=== PATIENT | male | born 1965 | race African-American/Black ===

== ENCOUNTER 2016-10-25 01:38 | Inpatient (IN) | payer SELFPAY ==
[~2016-10-25] VITALS: Ht 172.7 cm; Wt 77.1 kg
--- NOTE | 2016-10-25 01:40 | ERA ---
ER Documentation Chief Complaint Date/Time DATE: 10/25/16 TIME: 01:40 Chief Complaint Seizure HPI The patient is a 50-year-old male, presenting to the ER because of she is alert that began about 30 minutes prior to arrival. He was having generalized seizure according to the and the supervisor ski production. He was treated with Versed 5 mg IV with moderate response. He was postictal upon arrival to the emergency department, Accu-Chek was 136. He had history of metastatic carcinoma, receiving chemo therapy and radiation therapy to the left hip. He has not been taking his medication. He is unable to provide any history, the history is obtained from the family and the supervisor ski production. He does not smoke nor drink Past medical history: Prostatic brain cancer Past surgical history: None ROS All systems reviewed and are negative except as per history of present illness. Medications Home Meds Reported Medications Levetiracetam* (Keppra*) 500 Mg Tablet, 500 MG PO BID, TAB 10/25/16 Dexamethasone* (Dexamethasone*) 4 Mg Tablet, 4 MG PO DAILY, TAB 10/25/16 Allergies Allergies: Coded Allergies: No Known Drug Allergies (Verified Allergy, Unknown, 10/25/16) Physical Exam Vitals Vital Signs Date Time Temp Pulse Resp B/P Pulse Ox O2 Delivery O2 Flow Rate FiO2 10/25/16 04:21 99.3 100 16 145/89 100 10/25/16 03:06 100 3.0 Physical Exam Const: No acute distress. Post ictal Head: Atraumatic. Eyes: Normal Conjunctiva. ENT: Normal External Ears, Nose and Mouth. Neck: Full range of motion. No meningismus. Resp: Clear to auscultation bilaterally. Cardio: Regular rate and rhythm, no murmurs. Abd: Soft, non distended, normal bowel sounds, non tender. Skin: No petechiae or rashes. Back: No midline or flank tenderness. Ext: No cyanosis, or edema. Neur: Unable to perform due to his condition Psych: Unable to perform due to his condition Result Diagram: 10/25/16 0345 10/25/16 0345 Results 24 hrs Laboratory Tests Test 10/25/16 03:45 10/25/16 04:00 Alanine Aminotransferase (ALT/SGPT) 84IU/L Albumin 4.4g/dl Albumin/Globulin Ratio 1.51 Alkaline Phosphatase 204IU/L Anion Gap 20 Aspartate Amino Transf (AST/SGOT) 34IU/L Basophils # 0.010^3/ul Basophils % 0.2% Blood Morphology Comment Blood Urea Nitrogen 14mg/dl Calcium Level 9.4mg/dl Carbon Dioxide Level 30mmol/L Chloride Level 98mmol/L Creatinine 0.68mg/dl Direct Bilirubin 0.00mg/dl Eosinophils # 0.010^3/ul Eosinophils % 0.1% Globulin 2.90g/dl Glucose Level 125mg/dl Hematocrit 48.2% Hemoglobin 15.6g/dl Indirect Bilirubin 0.2mg/dl Lymphocytes # 0.510^3/ul Lymphocytes % 3.7% Mean Corpuscular Hemoglobin 26.9pg Mean Corpuscular Hemoglobin Concent 32.3g/dl Mean Corpuscular Volume 83.3fl Mean Platelet Volume 9.1fl Monocytes # 0.710^3/ul Monocytes % 5.2% Neutrophils # 11.410^3/ul Neutrophils % 90.8% Nucleated Red Blood Cells # 0.010^3/ul Nucleated Red Blood Cells % 0.0/100WBC Platelet Count 91470^3/UL Potassium Level 4.5mmol/L Red Blood Count 5.7910^6/ul Red Cell Distribution Width 15.8% Sodium Level 143mmol/L Total Bilirubin 0.2mg/dl Total Protein 7.3g/dl White Blood Count 12.610^3/ul Lactic Acid Level 3.6mmol/L Current Medications Medications (Trade) Dose Ordered Sig/Ace Route PRN Reason Start Time Stop Time Status Last Admin Dose Admin Lorazepam 1 mg 1 mg ONCE STAT IV 10/25/16 01:41 10/25/16 01:44 DC 10/25/16 01:48 Levetiracetam/ Sodium Chloride (Keppra Iv/NS) 110 ml @ 400 mls/hr ONCE STAT IVPB 10/25/16 01:41 10/25/16 01:57 DC 10/25/16 02:21 Lorazepam 1 mg 1 mg ONCE ONCE IV 10/25/16 02:30 10/25/16 02:31 DC 10/25/16 02:09 Vancomycin HCl 250 ml @ 125 mls/hr ONCE IVPB 10/25/16 02:30 10/25/16 04:29 Cancel Piperacillin Sod/ Tazobactam Sod 100 ml @ 200 mls/hr ONCE ONCE IVPB 10/25/16 02:30 10/25/16 02:59 DC 10/25/16 04:17 Sodium Chloride (NS) 1,000 ml @ 50 mls/hr Q20H IV 10/25/16 04:10 10/25/16 12:58 Procedures/MDM EKG: Read by emergency physician Rate/Rhythm: Sinus tachycardia 115 beats/min QRS, ST, T-waves: No ST elevation, no T inversion, LVH, left atrial enlargement Impression: Abnormal EKG [place] [id number] Radiology Main Line: [phone] DIAGNOSTIC IMAGING REPORT Patient: NAZ SHAH : 1965 Age: 50 Sex: M MR #: [id number] DOS: 10/25/16 0141 Ordering MD: ARMAAN MANCINI MD Location: E/R Room/Bed: PROCEDURE: CHEST - 1 VIEW CLINICAL INDICATION: 50-year-old male with seizure. TECHNIQUE: A single frontal AP upright view of the chest was performed portably. The images were reviewed on a PACS workstation. COMPARISON: None. FINDINGS: The cardiomediastinal silhouette within normal limits. There is a shallow inspiration. There is mild right basilar subsegmental atelectasis. There is diffuse patchy infiltrate within the left mid/lower lung zone. There is no evidence for congestive heart failure. There is no evidence for pneumothorax. The osseous structures are intact. IMPRESSION: 1. Shallow inspiration. 2. Mild bibasilar subsegmental atelectasis. 3. Diffuse patchy left mid/lower lung zone infiltrates. .Saman Martinez MD, Date Time Electronically viewed and signed by .Saman Martinez MD, on 10/25/2016 02:00 .M/ CC: ARMAAN MANCINI MD [place] [id number] Radiology Main Line: [phone] DIAGNOSTIC IMAGING REPORT Patient: NAZ SHAH : 1965 Age: 50 Sex: M [id number] DOS: 10/25/16 0141 Ordering MD: ARMAAN MANCINI MD Location: E/R Room/Bed: PROCEDURE: CT BRAIN WITHOUT CONTRAST CLINICAL INDICATION: 50-year-old male with seizure. TECHNIQUE: The study was performed utilizing a [employer] VCT 64-slice CT scanner. Direct axial sections were obtained from the foramen magnum to the vertex without the use of intravenous contrast material. Sagittal and coronal reformations were obtained. Automated exposure control and iterative reconstruction techniques were utilized for this examination. The images were viewed on a PACS workstation. CTD/vol = 50.3 mGy; Total Exam DLP = 920.0 mGy- cm. COMPARISON: None. FINDINGS: The ventricles have a normal size, shape and position. There is no evidence for mass effect or midline shift. There are no intracranial areas of abnormal attenuation. There is no evidence for acute intra or extra-axial blood. The bony calvarium is intact. The temporalis muscles are prominent bilaterally. The visualized paranasal sinuses and mastoid air cells are without abnormal soft tissue. IMPRESSION: Unremarkable noncontrast CT scan of the brain. .Saman Martinez MD, MD Date Time Electronically viewed and signed by .Saman Martinez MD, on 10/25/2016 03:50 .M/ CC: ARMAAN MANCINI MD MEDICAL MAKING DECISION: The patient is a 50-year-old male with history of metastatic brain CA, presenting with recurrent seizure, acute severe sepsis, acute pneumonia. He was treated with Ativan 2 mg IV and Keppra 1000 mg IV, normal saline 30 mL/kg, vancomycin IV, Zosyn IV due to concern for probable aspiration pneumonia. The differential diagnoses considered include but are not limited to medication non-compliance, alcohol intoxication or withdrawal, drug intoxication or withdrawal, endocrine disorder, trauma, CVA, tumor, metabolic encephalopathy, septic encephalopathy. Admit MDM: Patient's infectious symptoms have not stabilized and the patient is at risk of rapid decompensation. The patient will be admitted for careful hydration, antibiotic therapy, and infectious source control. Severe Sepsis criteria: Infectious source: Pneumonia End organ damage indicated by: Lactate > 2.0 mmol/L Hypotension (SBP < 90 or >40 mmHG drop or MAP < 65) Sepsis Management: Time of recognition of severe sepsis/septic shock: 4:05 am Within 3 hours of recognition: Blood cultures x 2 before broad-spectrum antibiotics: Yes 30 ml/kg NS bolus completed Initial lactate 3.6 Repeat lactate pending Critical Care: Critical care time 35 minutes Emergent fluid management while maintaining close respiratory support. Provision of immediate and broad-spectrum antibiotic therapy. Simultaneous assessment for possible sources in order to direct targeted therapy. Consideration for invasive and chemical support to prevent cardiopulmonary collapse. Septic Shock Assessment: Any lactic acid > 4.0 no Persistent hypotension (SBP < 90 or 40 mmHg drop, MAP < 65) despite 30 mL/kg IV fluid bolusno Departure Diagnosis: Primary Impression: Recurrent seizures Additional Impressions: Severe sepsis Pneumonia Condition: Stable Comments I discussed the findings with the patient. I discussed the patient with the on- call hospitalist Dr. Marti who was made aware of the lab, the treatment, the patient condition. The patient is admitted to telemetry at 4:10 AM ARMAAN MANCINI MD Oct 25, 2016 01:40
[2016-10-25] MEDS ORDERED: LEVETIRACETAM IV 1,000 MG in SOD CHLORIDE 0.9% 100 ML IVPB STA (01:41)
[2016-10-25] MEDS ORDERED: LORAZEPAM 2 MG INJ IV STA (01:41)
--- NOTE | 2016-10-25 02:00 | RADRPT ---
PROCEDURE: CHEST - 1 VIEW CLINICAL INDICATION: 50-year-old male with seizure. TECHNIQUE: A single frontal AP upright view of the chest was performed portably. The images were reviewed on a PACS workstation. COMPARISON: None. FINDINGS: The cardiomediastinal silhouette within normal limits. There is a shallow inspiration. There is mil d right basilar subsegmental atelectasis. There is diffuse patchy infiltrate within the left mid/low er lung zone. There is no evidence for congestive heart failure. There is no evidence for pneumotho rax. The osseous structures are intact. IMPRESSION: 1. Shallow inspiration. 2. Mild bibasilar subsegmental atelectasis. 3. Diffuse patchy left mid/lower lung zone infiltrates. .Saman Martinez MD, Date Time Electronically viewed and signed by .Saman Martinez MD, on 10/25/2016 02:00 .M/
[2016-10-25] MEDS ORDERED: VANCOMYCIN 1 GM (PMX) 250 ML IVPB SCH (02:30)
[2016-10-25] MEDS ORDERED: LORAZEPAM 2 MG INJ IV ONE (02:30)
[2016-10-25] MEDS ORDERED: PIPER-TAZO 3.375 GM IV (PMX) 100 ML IVPB ONE (02:30)
--- NOTE | 2016-10-25 03:50 | RADRPT ---
PROCEDURE: CT BRAIN WITHOUT CONTRAST CLINICAL INDICATION: 50-year-old male with seizure. TECHNIQUE: The study was performed utilizing a [employer] VCT 64-slice CT scanner. Direct axia l sections were obtained from the foramen magnum to the vertex without the use of intravenous contra st material. Sagittal and coronal reformations were obtained. Automated exposure control and iterat samuel reconstruction techniques were utilized for this examination. The images were viewed on a PACS workstation. CTD/vol = 50.3 mGy; Total Exam DLP = 920.0 mGy-cm. COMPARISON: None. FINDINGS: The ventricles have a normal size, shape and position. There is no evidence for mass effect or midl ine shift. There are no intracranial areas of abnormal attenuation. There is no evidence for acute intra or extra-axial blood. The bony calvarium is intact. The temporalis muscles are prominent bila terally. The visualized paranasal sinuses and mastoid air cells are without abnormal soft tissue. IMPRESSION: Unremarkable noncontrast CT scan of the brain. .Saman Martinez MD, MD Date Time Electronically viewed and signed by .Saman Martinez MD, MD on 10/25/2016 03:50 .M/
[2016-10-25 04:26] LABS: ALBUMIN 4.4 g/dl (3.3-4.9); POTASSIUM 4.5 mmol/L (3.5-5.1)
[2016-10-25 04:29] LABS: ALBUMIN/GLOBULIN RATIO 1.51; BILIRUBIN,INDIRECT 0.2 mg/dl (0-1.1); BILIRUBIN,TOTAL 0.2 mg/dl (0.2-1.3); CREATININE 0.68 mg/dl (0.61-1.24); TOTAL PROTEIN 7.3 g/dl (6.1-8.1)
[2016-10-25 04:30] LABS: CALCIUM 9.4 mg/dl (8.4-10.2)
[2016-10-25] MEDS ORDERED: VANCOMYCIN IV PER PHARMACY XX SCH (04:30)
[2016-10-25] MEDS ORDERED: NITROGLYCERIN (SL) 0.4 MG TAB SL PRN (04:30)
[2016-10-25] MEDS ORDERED: ONDANSETRON 4 MG INJ IV PRN (04:30)
[2016-10-25] MEDS ORDERED: morphine 2 MG INJ IV PRN (04:30)
[2016-10-25] MEDS ORDERED: ACETAMINOPHEN 325 MG TAB PO PRN (04:30)
[2016-10-25] MEDS ORDERED: NACL 0.9% 3 ML SYG IV SCH (04:30)
[2016-10-25 04:31] LABS: BASOPHILS % 0.2 % (0.0-2.0); EOSINOPHILS % 0.1 % (0.0-7.0); HEMATOCRIT 48.2 % (42.0-52.0); HEMOGLOBIN 15.6 g/dl (14.0-18.0); LYMPHOCYTES # 0.5 10^3/ul (0.8-2.9); LYMPHOCYTES % 3.7 % (15.0-51.0); MEAN CORPUSCULAR HEMOGLOBIN 26.9 pg (29.0-33.0); MEAN CORPUSCULAR HGB CONC 32.3 g/dl (32.0-37.0); MEAN CORPUSCULAR VOLUME 83.3 fl (82.0-101.0); MEAN PLATELET VOLUME 9.1 fl (7.4-10.4); MONOCYTE # 0.7 10^3/ul (0.3-0.9); MONOCYTES % 5.2 % (0.0-11.0); NEUTROPHIL # 11.4 10^3/ul (1.6-7.5); NEUTROPHILS % 90.8 % (39.0-77.0); PLATELET COUNT 152 10^3/UL (140-440); RED BLOOD COUNT 5.79 10^6/ul (4.70-6.10); RED CELL DISTRIBUTION WIDTH 15.8 % (11.5-14.5); UNCORRECTED WBC 12.6 10^3/ul (4.8-10.8); WHITE BLOOD COUNT 12.6 10^3/ul (4.8-10.8)
[2016-10-25 04:35] LABS: CONDITION 1; LH ANALYZER COMMENTS 1
--- NOTE | 2016-10-25 04:41 | HP ---
Date/Time of Note Date/Time of Note DATE: 10/25/16 TIME: 04:32 Assessment/Plan VTE Prophylaxis VTE Prophylaxis Intervention: SCD's Assessment/Plan Assessment/Plan 50 yo unfortunate male with a past medical history of metastatic brain CA, seizure d/o, who presents with overriding seizures. 1. Seizures - 2/2 no medications - will admit the patient to telemetry, consult neurology, EEG, IV keppra, seizure precautions, pads, monitor acute changes, neurovascular checks 2. Metastatic brain CA - consult hematology/oncology 3. LLL PNA - zosyn/vanc - monitor acute changes 4. GI ppx - pepcid IV 5. DVT ppx - scds answered all questions. as per clinical course. this history and physical took greater then 45 minutes to complete HPI/ROS Admit Date/Time Admit Date/Time 10/25/2016, 4:32 am Hx of Present Illness 50 yo unfortunate male with a past medical history of metastatic brain CA, seizure d/o, who presents with overriding seizures. He was found by his to be unresponsive for quite some time and came to the ER here at [facility] for further evaluation and treatment. They had recently traveled from [place] last night. Since then, the patient had has fevers/chills, and decreased appetite. He has not been taking his medications as prescribed. His seizure resulted in urinary incontinence. No other history can be obtained. all this information was gathered from the patient's . ED course: IV antibiotics, keppra, ativan ROS Subjective hx not possible: pt non-verbal PMH/Family/Social Past Medical History seizure d/o, metastatic cancer - brain? Past Surgical History Past Surgical Hx: no surgical history Family History Significant Family History: no pertinent family hx Social History Alcohol Use: none Smoking Status: Never smoker Drug Use: none Exam/Review of Systems Vital Signs Vitals Vital Signs Date Time Temp Pulse Resp B/P Pulse Ox O2 Delivery O2 Flow Rate FiO2 10/25/16 03:06 100 3.0 Exam Exam Gen Bruce: obtunded HEENT: NC/AT, PERRLA, MM dry NECK: supple, no thyromegaly THORAX: symmetrical, no obvious deformities CV: S1S2, RRR, no M/G/R Lungs: left lower rhonchi in comparison to the right lung, no wheezing Abd: soft, NT/ND, +BS, no rebound, no guarding, neg HSM EXT: no edema, no ecchymosis, no clubbing, FROM Neuro: obtunded Psych: confused Skin: cool and clammy Medications Medications Current Medications Sodium Chloride (NS) 1,000 ml @ 50 mls/hr Q20H IV ; Start 10/25/16 at 04:10; Status UNV Lorazepam (Ativan) 0.5 mg Q6H PRN IV ANXIETY; Start 10/25/16 at 04:30; Status UNV Ondansetron HCl (Zofran Inj) 4 mg Q6H PRN IV NAUSEA AND/OR VOMITING; Start at 04:30; Status UNV Nitroglycerin (Nitroglycerin (Sl Tab) 0.4 Mg) 1 tab Q5M PRN SL CHEST PAIN; Start 10/25/16 at 04:30; Status UNV Acetaminophen (Tylenol Tab) 650 mg Q6H PRN PO PAIN LEVEL 1-3 OR FEVER; Start at 04:30; Status UNV Morphine Sulfate (morphine) 2 mg Q4H PRN IV PAIN LEVEL 7-10; Start 10/25/16 at 04:30; Status UNV Famotidine 20 mg 20 mg Q12 IV ; Start 10/25/16 at 09:00; Status UNV Piperacillin Sod/ Tazobactam Sod 100 ml @ 200 mls/hr Q6 IVPB ; Start 10/25/16 at 06:00; Status UNV Levetiracetam/ Dextrose (Keppra Iv/D5W) 110 ml @ 440 mls/hr Q12 IVPB ; Start at 09:00; Status UNV Procedures Procedures CT brain IMPRESSION: Unremarkable noncontrast CT scan of the brain. CXR IMPRESSION: 1. Shallow inspiration. 2. Mild bibasilar subsegmental atelectasis. 3. Diffuse patchy left mid/lower lung zone infiltrates. PETER LANDERS MD Oct 25, 2016 04:41
[2016-10-25] MEDS ORDERED: VANCOMYCIN 1.25 GM in SOD CHLORIDE 0.9% 250 ML IVPB ONE (05:00)
[2016-10-25] MEDS ORDERED: SOD CHLORIDE 0.9% 2,390 ML IV ONE (05:30)
[2016-10-25 06:08] LABS: PROTIME 13.2 Sec (12.2-14.2)
[2016-10-25 06:10] LABS: PARTIAL THROMBOPLASTIN TIME 24.4 Sec (25.0-35.0)
[2016-10-25] MEDS: LORAZEPAM 2 MG INJ IV PRN ×2 (06:21→19:02)
[2016-10-25] MEDS ORDERED: LIDOCAINE 1% (MDV) 20 ML INJ SC ONE (06:30)
--- NOTE | 2016-10-25 06:57 | QN ---
Documentation Comment EKG read by me: Rate/Rhythm: Regular rate and rhythm at a rate of 75 Intervals: Normal Impression: No evidence of ischemia or arrhythmia The patient had pulled out 2 IVs and so not behavioral restraints needed to be placed. The patient also requires IV access was a difficult stick and therefore PICC line was ordered for access. His lactic acid has increased from 3.6 to greater than 4 but that was without receiving any fluids. His lactic acid elevation may be from seizure. At this point I doubt true septic shock. SULEMA PHILLIPS MD Oct 25, 2016 06:57
[2016-10-25 07:24] LABS: URINE BLOOD (Dip) POC Trace-intact (NEGATIVE)
[2016-10-25] MEDS ORDERED: MAGNESIUM SULFATE 2 GM/50 ML 50 ML IVPB ONE (07:30)
[2016-10-25] MEDS ORDERED: DEXA4TAB PO (07:34)
[2016-10-25] MEDS ORDERED: LEVE-5 PO (07:35)
[2016-10-25] MEDS ORDERED: LEVETIRACETAM IV 1,000 MG in DEXTROSE 5% 100 ML IVPB SCH (09:00)
[2016-10-25] MEDS: FAMOTIDINE 20 MG INJ IV SCH ×2 (10:47→21:57)
[2016-10-25 12:30] VITALS: TEMP 100
[2016-10-25] MEDS: SOD CHLORIDE 0.9% 1,000 ML IV SCH ×2 (12:58→23:22)
[2016-10-25] MEDS: PIPER-TAZO 3.375 GM IV (PMX) 100 ML IVPB SCH ×2 (12:58→17:24)
[2016-10-25] MEDS ORDERED: VANCOMYCIN 1 GM in NS 250 ML IVPB SCH ×2 (13:00→17:00)
--- NOTE | 2016-10-25 13:58 | RADRPT ---
PROCEDURE: XR Chest. CLINICAL INDICATION: PICC line placement TECHNIQUE: Chest AP portable. COMPARISON: 10/25/2016 at all 0154 hours FINDINGS: Left arm PICC line with tip in the upper superior vena cava. The mediastinal structures are unremarkable. The heart is normal in size and configuration. The pu lmonary vascularity is normal. There are low lung volumes. There is no change in the LLL retrocard iac patchy consolidation (query pneumonia). No change in right basilar subsegmental atelectasis. T he pleural spaces are unremarkable. The axial skeleton is unremarkable. IMPRESSION: Left arm PICC line with tip in upper superior vena cava Low lung volumes. No change in the LLL retrocardiac patchy consolidation (query pneumonia) No change in right basilar subsegmental atelectasis RPTAT: HGDB .Sukhjinder Cabezas MD, MD Date Time Electronically viewed and signed by .Sukhjinder Cabezas MD, on 10/25/2016 13:57 .B/
--- NOTE | 2016-10-25 14:08 | RADRPT ---
PROCEDURE: US guidance for PICC line CLINICAL INDICATION: PICC line placement TECHNIQUE: Multiple real-time images were acquired of the patient's arm utilizing a high resolutio n transducer. This was performed by the PICC line nurse for venous access. COMPARISON: None FINDINGS: Ultrasound guidance for PICC line placement. IMPRESSION: Ultrasound guidance for PICC line placement. RPTAT: AA .Marco Harris MD, MD Date Time Electronically viewed and signed by .Marco Harris MD, on 10/25/2016 14:07 .S/
[2016-10-25 16:55] VITALS: Ht 172.7 cm; Wt 77.1 kg
[2016-10-25 16:59] VITALS: BP 123/72; PULSE 95; RESP 20
--- NOTE | 2016-10-25 18:48 | CONS ---
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 Metastatic brain CA - OBTAIN AND REVIEW MEDICAL RECORD restart [facility] WILL GET MORE INFO FROM [place] AND RE DX, PRIMARY AND TREATMENT GIVEN IN THE PAST Seizures - 10/04 no medications - will admit the patient to telemetry, consult neurology, EEG, IV keppra, [facility], seizure precautions, pads, monitor acute changes, neurovascular checks LLL PNA - zosyn/vanc - monitor acute changes GI ppx - pepcid IV DVT ppx - scds INCOMPLETE DATA NONCOMPLUANCE WITH [facility] OUTPT Problems: Consultation Date/Type/Reason Admit Date/Time 10/25/2016, 4:32 am Date of Consultation: Oct 25, 2016 Type of Consultation: hemeonc Reason for Consultation brain mets Referring Provider: CHRISTOPHER CALIXTO Hx of Present Illness Hx of Present Illness 50 yo unfortunate male with a past medical history of lung cancer, dx as st 4 dis in 2014 , 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 He was found by his to be unresponsive for quite some time and came to the ER here at [facility] for further evaluation and treatment. They had recently traveled from [place] last night. Since then, the patient had has fevers/chills, and decreased appetite. He has not been taking his medications as prescribed. His seizure resulted in urinary incontinence. No other history can be obtained. all this information was gathered from the patient's . ROS Subjective hx not possible: pt non-verbal PMH/Family/Social Past Medical History seizure d/o, metastatic cancer - brain? Past Surgical History Past Surgical Hx: no surgical history Family History Significant Family History: no pertinent family hx Social History Alcohol Use: none Smoking Status: Never smoker Drug Use: none Past Surgical History Past Surgical Hx: no surgical history Social History Alcohol Use: none Smoking Status: Former smoker Drug Use: none Other Social History Medications Medications Current Medications Sodium Chloride (NS) 1,000 ml @ 50 mls/hr Q20H IV ; Start 10/25/16 at 04:10; Status UNV Lorazepam (Ativan) 0.5 mg Q6H PRN IV ANXIETY; Start 10/25/16 at 04:30; Status UNV Ondansetron HCl (Zofran Inj) 4 mg Q6H PRN IV NAUSEA AND/OR VOMITING; Start at 04:30; Status UNV Nitroglycerin (Nitroglycerin (Sl Tab) 0.4 Mg) 1 tab Q5M PRN SL CHEST PAIN; Start 10/25/16 at 04:30; Status UNV Acetaminophen (Tylenol Tab) 650 mg Q6H PRN PO PAIN LEVEL 1-3 OR FEVER; Start at 04:30; Status UNV Morphine Sulfate (morphine) 2 mg Q4H PRN IV PAIN LEVEL 7-10; Start 10/25/16 at 04:30; Status UNV Famotidine 20 mg 20 mg Q12 IV ; Start 10/25/16 at 09:00; Status UNV Piperacillin Sod/ Tazobactam Sod 100 ml @ 200 mls/hr Q6 IVPB ; Start 10/25/16 at 06:00; Status UNV Levetiracetam/ Dextrose (Keppra Iv/D5W) 110 ml @ 440 mls/hr Q12 IVPB ; Start at 09:00; Status UNV Exam/Review of Systems Vital Signs Vitals Vital Signs Date Time Temp Pulse Resp B/P Pulse Ox O2 Delivery O2 Flow Rate FiO2 10/25/16 16:59 98.3 95 20 123/72 98 Room Air 10/25/16 04:30 15.0 Exam Gen Bruce: obtunded HEENT: NC/AT, PERRLA, MM dry NECK: supple, no thyromegaly THORAX: symmetrical, no obvious deformities CV: S1S2, RRR, no M/G/R Lungs: left lower rhonchi in comparison to the right lung, no wheezing Abd: soft, NT/ND, +BS, no rebound, no guarding, neg HSM EXT: no edema, no ecchymosis, no clubbing, FROM Neuro: obtunded Psych: confused Skin: cool and clammy Results Result Diagram: 10/25/1634410/25/16 0345 Results 24 hrs Laboratory Tests Test 10/25/16 03:45 10/25/16 04:00 10/25/16 05:37 10/25/16 05:43 Alanine Aminotransferase (ALT/SGPT) 84 H Albumin 4.4 Albumin/Globulin Ratio 1.51 Alkaline Phosphatase 204 H Anion Gap 20 H Aspartate Amino Transf (AST/SGOT) 34 Basophils # 0.0 Basophils % 0.2 Blood Morphology Comment Blood Urea Nitrogen 14 Calcium Level 9.4 Carbon Dioxide Level 30 Chloride Level 98 Creatinine 0.68 Direct Bilirubin 0.00 Eosinophils # 0.0 Eosinophils % 0.1 Globulin 2.90 Glucose Level 125 Hematocrit 48.2 Hemoglobin 15.6 Indirect Bilirubin 0.2 Lymphocytes # 0.5 L Lymphocytes % 3.7 L Mean Corpuscular Hemoglobin 26.9 L Mean Corpuscular Hemoglobin Concent 32.3 Mean Corpuscular Volume 83.3 Mean Platelet Volume 9.1 Monocytes # 0.7 Monocytes % 5.2 Neutrophils # 11.4 H Neutrophils % 90.8 H Nucleated Red Blood Cells # 0.0 Nucleated Red Blood Cells % 0.0 Platelet Count 152 Potassium Level 4.5 Red Blood Count 5.79 Red Cell Distribution Width 15.8 H Sodium Level 143 Total Bilirubin 0.2 Total Protein 7.3 White Blood Count 12.6 H Lactic Acid Level 3.6 H 4.5 *H Activated Partial Thromboplast Time 24.4 L INR International Normalized Ratio 1.00 Magnesium Level 1.8 Prothrombin Time 13.2 Prothrombin Time Ratio 1.0 Bedside Glucose 102 Test 10/25/16 07:25 Bedside Urine Blood Trace-intact H Bedside Urine Glucose (UA) Negative Bedside Urine Ketones (LAB) Negative Bedside Urine Leukocyte Esterase (L Negative Bedside Urine Nitrite (LAB) Negative Bedside Urine Protein (LAB) 1+ H Bedside Urine pH (LAB) 7.5 Medications Medications Current Medications Sodium Chloride (NS) 1,000 ml @ 50 mls/hr Q20H IV Last administered on 12:58; Admin Dose 50 MLS/HR; Start 10/25/16 at 04:10 Lorazepam (Ativan) 0.5 mg Q6H PRN IV ANXIETY Last administered on 10/25/16 06: 21; Admin Dose 0.5 MG; Start 10/25/16 at 04:30 Ondansetron HCl (Zofran Inj) 4 mg Q6H PRN IV NAUSEA AND/OR VOMITING; Start at 04:30 Nitroglycerin (Nitroglycerin (Sl Tab) 0.4 Mg) 1 tab Q5M PRN SL CHEST PAIN; Start 10/25/16 at 04:30 Acetaminophen (Tylenol Tab) 650 mg Q6H PRN PO PAIN LEVEL 1-3 OR FEVER; Start at 04:30 Morphine Sulfate (morphine) 2 mg Q4H PRN IV PAIN LEVEL 7-10; Start 10/25/16 at 04:30 Famotidine 20 mg 20 mg Q12 IV Last administered on 10/25/16 10:47; Admin Dose 20 MG; Start 10/25/16 at 09:00 Piperacillin Sod/ Tazobactam Sod 100 ml @ 200 mls/hr Q6 IVPB Last administered on 10/25/16 17:24; Admin Dose 200 MLS/HR; Start 10/25/16 at 12:00 Levetiracetam 1000 mg/Dextrose 110 ml @ 440 mls/hr Q12 IVPB Last administered on 10/25/16 11:15; Admin Dose 440 MLS/HR; Start 10/25/16 at 09:00 Vancomycin HCl (Vancocin) 250 ml @ 125 mls/hr Q8H IVPB ; Start 10/25/16 at 17: 00 Miscellaneous Information (*Rx Drug Level Order Reminder*) 1 ONCE ONCE XX ; Start 10/26/16 at 08:00; Stop 10/26/16 at 08:01 Influenza Virus Vaccine (Fluzone) 0.5 ml ONCE ONCE IM* ; Start 10/26/16 at 09:00 ; Stop 10/26/16 at 09:01 Procedures Procedures Procedures Procedures CT brain IMPRESSION: Unremarkable noncontrast CT scan of the brain. CXR IMPRESSION: 1. Shallow inspiration. 2. Mild bibasilar subsegmental atelectasis. 3. Diffuse patchy left mid/lower lung zone infiltrates. EDUIN CARSON MD Oct 25, 2016 18:48
[2016-10-25 19:20] VITALS: BP 134/82; RESP 20
--- NOTE | 2016-10-25 19:37 | RADRPT ---
PROCEDURE: MRI Brain without contrast. CLINICAL INDICATION: Seizure and patient with history of lung cancer and possible metastasis. TECHNIQUE: An MRI of the brain was performed on a high resolution hi-definition 3.0 Nel MRI scan ner utilizing the following sequences: Sagittal and axial T1 FLAIR weighted, axial T2 weighted, sandra nal oblique T2 FLAIR through the temporal lobes, axial diffusion weighted with ADC mapping, coronal GRE, and axial T2 FLAIR. COMPARISON: CT brain 10/25/2016 FINDINGS: The scalp and calvarium are normal. The visualized bilateral orbits are normal. The bilateral paran evelyne sinuses are remarkable for left greater than right maxillary sinus retention cysts. The remain lizbet the paranasal sinuses, mastoid air cells and middle ear cavities are clear. No extra-axial fluid collections are present. The ventricles and sulci are age appropriate. Mild di ffuse volume loss is present. On the FLAIR and T2-weighted sequences, numerous foci of intermediate to hyperintensity are noted in the left posterior paramidline parietal lobe, right frontal lobe, ri ght posterior frontal white matter, bilateral basal ganglia, left thalami, left greater than right c erebral peduncle, bilateral godwin, left superior vermis, and multiple foci of hyperintensity and mass es in the left cerebellar hemisphere and mass suggested in the left internal auditory canal. These lesions are concerning for metastatic disease and recommend Brain MRI with contrast. The largest of these is at least 4 cm in the left superior vermis and approximately 2.0 cm in the left cerebellar h emisphere. Brain MRI with contrast. No evidence for acute hemorrhage, hydrocephalus or herniation is present. The dedicated images of the bilateral temporal lobes demonstrate symmetric bilateral fornices and hippocampal formations. No evidence for restricted diffusion is noted on diffusion weig hted sequences to suggest acute infarcts. No evidence for hypointensity on GRE sequences are noted to suggest hemorrhage. Normal flow voids are visible in the proximal intracranial arteries and dural sinuses, indicating pa tency. IMPRESSION: 1. Multiple FLAIR and T2 intermediate to hyperintense lesions and masses concerning for diffuse met astatic disease as described above. Recommend Brain MRI with contrast. 2. No evidence for acute hemorrhage, hydrocephalus or herniation. 3. Mild diffuse volume loss 4. Left greater than right maxillary sinus mucous retention cyst. A call report was made to Patient's Nurse, Fuad Cortes, at 10/25/2016 7:23:28 PM following the comp letion of the examination by the undersigned. RPTAT: HDC .Jordyn Watson MD, MD Date Time Electronically viewed and signed by .Jordyn Watson MD, MD on 10/25/2016 19:37 .C/
[2016-10-25] MEDS ORDERED: PHENYTOIN 1,250 MG in SOD CHLORIDE 0.9% 150 ML IV ONE (20:30)
[2016-10-25] MEDS ORDERED: SOD CHLORIDE 0.9% 100 ML ONE (20:46)
[2016-10-25] MEDS: DEXAMETHASONE 4 MG/ML 1 ML INJ IV SCH (21:06)
[2016-10-25] MEDS: LEVETIRACETAM IV 1,500 MG in DEXTROSE 5% 100 ML IVPB SCH (23:12)
--- NOTE | 2016-10-25 23:53 | NEURPT ---
DATE: 10/25/2016 INDICATION: A 50-year-old gentleman with history of metastatic disease to the brain, seizure disorder, presented with septic shock and pneumonia, currently on Keppra. DESCRIPTION OF PROCEDURE: Routine EEG was recorded digitally. Gxjuf-ed-fasxb and srpje-dv-slw montages were recorded and reviewed. All impedances were measured and recorded. Cap electrodes were placed in accordance with International 10-20 system of electrode placement. FINDINGS: Symmetrically distributed background activity of medium amplitude with frequency ranging between 2 to 4 cycles per second was seen. There are frequent generalized or predominantly right-sided sharp waves, at times rhythmical, also ranging between 2 to 4 cycles per second, or at times not rhythmical. Photic stimulation produces no driving. IMPRESSION: Abnormal study secondary to right-sided or generalized sharp wave activity, clearly epileptogenic. Please correlate with imaging. This activity reflects periodic epileptiform discharges , also possible short electrical seizures. Aggressive seizure prophylaxis needed. Dictated By: TOSHA LINARES/BRYCE Conf#: [id number] DID#: [id number] ANJUM
--- NOTE | 2016-10-26 00:35 | CONS ---
DATE OF ADMISSION: 10/25/2016 DATE OF CONSULTATION: Thank you, Dr. Marit, for your kind referral for evaluation of intractable seizures. HISTORY OF PRESENT ILLNESS: The patient is a 50-year-old gentleman with past medical history of met astatic disease to the brain. He lives in [place] and was getting treatment for seizures there. He had seizures a few months ago, at that time hospitalized, started on Keppra 500 mg twice daily as we ll as Decadron. Patient was then okay without any seizures, but [place] he was having episodes of staring spells and transient unresponsiveness and later had 2 general ized seizures as well. On admission, he was loaded with Keppra 1 gram. He had CAT scan of the head , shows essentially no abnormality, but MRI of the brain without contrast showed multiple hyperinten se lesions and masses concerning for diffuse metastatic disease. Chest x-ray shows diffuse patchy l eft mid and lower lung infiltrates. He was continued on Keppra 1000 twice daily but according to th e family present at bedside, still intermittently having episodes of staring, but no generalized epi sodes since admission to the floor. He had EEG which shows bilateral sharp wave activity, at times predominance on the right. At times, the activity seemed to be rhythmical and could reflect electri c seizures. At times not rhythmical and likely reflects epileptiform discharges. ALLERGIES: NONE. CURRENT MEDICATIONS: 1. Vancomycin. 2. Zosyn. 3. Decadron; he is started on 4 mg q.6 hours. SOCIAL HISTORY: No alcohol, tobacco, drug use. FAMILY HISTORY: Noncontributory. PAST MEDICAL HISTORY: As above, metastatic disease to the brain. It is not clear from the previous records whether it seemed to be originating from lung cancer. Oncologist on case. PHYSICAL EXAMINATION: VITAL SIGNS: Temperature 98.3, 95 pulse, 20 respiratory, 123/72 blood pressure. GENERAL: Not in acute distress, lying in bed. HEENT: Normocephalic, atraumatic head. NECK: No carotid bruits, no thyromegaly, no meningeal signs. LUNGS: Scattered rhonchi. CARDIAC: Normal cardiac rhythm and sounds. ABDOMEN: Soft. EXTREMITIES: No cyanosis, clubbing or edema. NEUROLOGIC: He is lethargic, arousable by voice, follows simple commands, not verbal. According to the family members since onset of his seizures on the plane, he is not verbal. Equivocal response to visual threats bilaterally. Pupils reactive from 3 to 2 mm bilaterally. Extraocular movements i ntact looks bilaterally. Symmetrical face. Corneal reflexes present bilaterally as well as gag. T he patient able to move all extremities at least 3/5, seemed to be symmetrical at times. It seems t hat the left arm is a little weaker, but not consistently. He withdraws to pain. Deep tendon refle xes 2+ throughout. Equivocal response to plantar stimulation. IMPRESSION: Metastatic disease to the brain, history of seizures, status post recurrence of seizure s since yesterday. The patient has not yet come to baseline. EEG shows multiple epileptiform disch arges and possibly short lasting seizures as well. My plan is to be more aggressive with seizure treatment, I will load him with Dilantin and continue 100 mg 3 times a day after the IV load. We will check a Dilantin level in the morning. Also, will increase Keppra to 1500 mg twice daily. Possible pneumonia. Treatment with antibiotics per PMD. Thank you very much for this interesting consultation. Dictated By: TOSHA LINARES/BRYCE Conf#: [id number] DID#: [id number]
[2016-10-26] MEDS: DEXAMETHASONE 4 MG/ML 1 ML INJ IV SCH ×5 (01:07→18:53)
[2016-10-26] MEDS: PIPER-TAZO 3.375 GM IV (PMX) 100 ML IVPB SCH ×5 (01:07→23:56)
[2016-10-26] MEDS: VANCOMYCIN 1 GM in NS 250 ML IVPB SCH ×2 (04:35→12:21)
[2016-10-26 05:54] LABS: ADD SCAN DIFF NO
[2016-10-26 06:03] LABS: ABNORMAL IP MESSAGE 1; BASOPHILS % 0.1 % (0.0-2.0); HEMATOCRIT 37.3 % (42.0-52.0); HEMOGLOBIN 11.9 g/dl (14.0-18.0); LYMPHOCYTES # 0.3 10^3/ul (0.8-2.9); LYMPHOCYTES % 2.7 % (15.0-51.0); MEAN CORPUSCULAR HEMOGLOBIN 26.9 pg (29.0-33.0); MEAN CORPUSCULAR HGB CONC 31.9 g/dl (32.0-37.0); MEAN CORPUSCULAR VOLUME 84.2 fl (82.0-101.0); MEAN PLATELET VOLUME 11.2 fl (7.4-10.4); MONOCYTE # 0.1 10^3/ul (0.3-0.9); MONOCYTES % 1.2 % (0.0-11.0); NEUTROPHILS % 95.8 % (39.0-77.0); PLATELET COUNT 125 10^3/UL (140-415); RED BLOOD COUNT 4.43 10^6/ul (4.70-6.10); RED CELL DISTRIBUTION WIDTH 15.2 % (11.5-14.5); WHITE BLOOD COUNT 9.4 10^3/ul (4.8-10.8)
[2016-10-26 06:07] LABS: POTASSIUM 3.5 mmol/L (3.5-5.1)
[2016-10-26 06:09] LABS: CREATININE 0.57 mg/dl (0.61-1.24)
[2016-10-26 06:10] LABS: CALCIUM 7.6 mg/dl (8.4-10.2)
[2016-10-26] MEDS: PHENYTOIN 100 MG INJ IV SCH ×3 (06:59→22:09)
[2016-10-26 07:36] VITALS: BP 123/80; RESP 19
[2016-10-26] MEDS: LEVETIRACETAM IV 1,500 MG in DEXTROSE 5% 100 ML IVPB SCH ×2 (08:39→22:08)
[2016-10-26] MEDS: FAMOTIDINE 20 MG INJ IV SCH ×2 (08:39→20:03)
[2016-10-26] MEDS ORDERED: INFLUENZA VIRUS VACCINE 0.5 ML (DISPENSING) IM* ONE (09:00)
--- NOTE | 2016-10-26 10:49 | CONS ---
Date/Time of Note Date/Time of Note DATE: 10/26/16 TIME: 10:45 Consult Date/Type/Reason Admit Date/Time Oct 25, 2016 at 04:29 Initial Consult Date 10/25/16 Type of Consultation: neurology Ordering Provider: CHRISTOPHER CALIXTO Subjective No seizures, per . Still confused improving. Loaded with dilantin last night , higher keppra dose Objective Vital Signs Date Time Temp Pulse Resp B/P Pulse Ox O2 Delivery O2 Flow Rate FiO2 10/26/16 07:36 98.7 86 19 123/80 95 10/25/16 16:59 Room Air 10/25/16 04:30 15.0 Intake and Output 10/25/16 10/25/16 10/26/16 15:00 23:00 07:00 Intake Total 815 ml Balance 815 ml Results/Medications Result Diagram: 10/26/16 0455 10/26/16 0452 Results 24 hrs Laboratory Tests Test 10/26/16 04:52 10/26/16 04:55 10/26/16 07:50 Anion Gap 12 # Blood Urea Nitrogen 10 Calcium Level 7.6 L Carbon Dioxide Level 24 Chloride Level 111 H Creatinine 0.57 L Glucose Level 122 Potassium Level 3.5 Sodium Level 143 Basophils # 0.0 Basophils % 0.1 Eosinophils # 0.0 Eosinophils % 0.0 Hematocrit 37.3 #L Hemoglobin 11.9 #L Lymphocytes # 0.3 L Lymphocytes % 2.7 L Mean Corpuscular Hemoglobin 26.9 L Mean Corpuscular Hemoglobin Concent 31.9 L Mean Corpuscular Volume 84.2 Mean Platelet Volume 11.2 #H Monocytes # 0.1 L Monocytes % 1.2 Neutrophils # 9.0 H Neutrophils % 95.8 H Nucleated Red Blood Cells # 0.0 Nucleated Red Blood Cells % 0.0 Phenytoin (Dilantin) Level 15.5 Platelet Count 125 L Red Blood Count 4.43 #L Red Cell Distribution Width 15.2 H White Blood Count 9.4 # Lactic Acid Level 1.4 Magnesium Level 2.0 Medications Current Medications Sodium Chloride (NS) 1,000 ml @ 50 mls/hr Q20H IV Last administered on t 12:58; Admin Dose 50 MLS/HR; Start 10/25/16 at 04:10 Lorazepam (Ativan) 0.5 mg Q6H PRN IV ANXIETY Last administered on 10/25/16 19: 02; Admin Dose 0.5 MG; Start 10/25/16 at 04:30 Ondansetron HCl (Zofran Inj) 4 mg Q6H PRN IV NAUSEA AND/OR VOMITING; Start at 04:30 Nitroglycerin (Nitroglycerin (Sl Tab) 0.4 Mg) 1 tab Q5M PRN SL CHEST PAIN; Start 10/25/16 at 04:30 Acetaminophen (Tylenol Tab) 650 mg Q6H PRN PO PAIN LEVEL 1-3 OR FEVER; Start at 04:30 Morphine Sulfate (morphine) 2 mg Q4H PRN IV PAIN LEVEL 7-10; Start 10/25/16 at 04:30 Famotidine 20 mg 20 mg Q12 IV Last administered on 10/26/16 08:39; Admin Dose 20 MG; Start 10/25/16 at 09:00 Piperacillin Sod/ Tazobactam Sod (Zosyn 3.375gm/ 100 ml (Pmx)) 100 ml @ 200 mls /hr Q6 IVPB Last administered on 10/26/16 06:47; Admin Dose 200 MLS/HR; Start 10/25/16 at 12:00 Miscellaneous Information (*Rx Drug Level Order Reminder*) 1 ONCE ONCE XX ; Start 10/26/16 at 11:00; Stop 10/26/16 at 11:01 Dexamethasone 4 mg 4 mg Q6 IV Last administered on 10/26/16 06:47; Admin Dose 4 MG; Start 10/25/16 at 20:00 Vancomycin HCl 250 ml @ 125 mls/hr Q8H IVPB Last administered on 10/26/16 04: 35; Admin Dose 125 MLS/HR; Start 10/26/16 at 04:00 Levetiracetam/ Dextrose (Keppra Iv/D5W) 115 ml @ 440 mls/hr Q12 IVPB Last administered on 10/26/16 08:39; Admin Dose 440 MLS/HR; Start 10/25/16 at 21:00 Phenytoin (Dilantin) 100 mg Q8 IV Last administered on 10/26/16 06:59; Admin Dose 100 MG; Start 10/26/16 at 07:00 Assessment/Plan Chief Complaint/Hosp Course PHYSICAL EXAMINATION: GENERAL: Not in acute distress, lying in bed. HEENT: Normocephalic, atraumatic head. NECK: No carotid bruits, no thyromegaly, no meningeal signs. LUNGS: Scattered rhonchi. CARDIAC: Normal cardiac rhythm and sounds. ABDOMEN: Soft. EXTREMITIES: No cyanosis, clubbing or edema. NEUROLOGIC: He is lawake, Ox1 follows commands, fluent speech. Normal response to visual threats bilaterally. Pupils reactive from 3 to 2 mm bilaterally. Extraocular movements intact looks bilaterally. Symmetrical face. Corneal reflexes present bilaterally as well as gag. The patient able to move all extremities at least 3+/5, seemed to be symmetrical. He feels pain. Deep tendon reflexes 2+ throughout. Equivocal response to plantar stimulation. IMPRESSION: Metastatic disease to the brain, history of seizures, status post recurrence of seizures. Continue Isabella. . Problems: TOSHA FOX MD Oct 26, 2016 10:49
--- NOTE | 2016-10-26 11:03 | CONS ---
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, who presents with overriding seizures 2 to noncompliance with antisz meds pt is improving cont current treatment plan start XRT in [place] after dc Seizures - / no medications - neurology f-up , EEG, IV keppra, DECADRON, seizure precautions , pads, monitor acute changes, neurovascular checks LLL PNA - zosyn/vanc - monitor acute changes GI ppx - pepcid IV DVT ppx - scds INCOMPLETE DATA NONCOMPLUANCE WITH ANTISZ MEDS OUTPT Problems: Consultation Date/Type/Reason Admit Date/Time Oct 25, 2016 at 04:29 Initial Consult Date 10/25/16 [facility] Referring Provider: CHRISTOPHER CALIXTO 24 HR Interval Summary Free Text/Dictation ALL NOTED D/W NO MORE SZ Exam/Review of Systems Vital Signs Vitals Vital Signs Date Time Temp Pulse Resp B/P Pulse Ox O2 Delivery O2 Flow Rate FiO2 10/26/16 07:36 98.7 86 19 123/80 95 10/25/16 16:59 Room Air 10/25/16 04:30 15.0 Intake and Output 10/25/16 10/25/16 10/26/16 15:00 23:00 07:00 Intake Total 815 ml Balance 815 ml Exam Gen Bruce: A,A, NAD HEENT: NC/AT, PERRLA, MM dry NECK: supple, no thyromegaly THORAX: symmetrical, no obvious deformities CV: S1S2, RRR, no M/G/R Lungs: left lower rhonchi in comparison to the right lung, no wheezing Abd: soft, NT/ND, +BS, no rebound, no guarding, neg HSM EXT: no edema, no ecchymosis, no clubbing, FROM Psych: A,A, FOLLOW COMMANDS Skin:N Results Result Diagram: 10/26/16 0458 10/26/16 0452 Results 24 hrs Laboratory Tests Test 10/26/16 04:52 10/26/16 04:55 10/26/16 07:50 Anion Gap 12 # Blood Urea Nitrogen 10 Calcium Level 7.6 L Carbon Dioxide Level 24 Chloride Level 111 H Creatinine 0.57 L Glucose Level 122 Potassium Level 3.5 Sodium Level 143 Basophils # 0.0 Basophils % 0.1 Eosinophils # 0.0 Eosinophils % 0.0 Hematocrit 37.3 #L Hemoglobin 11.9 #L Lymphocytes # 0.3 L Lymphocytes % 2.7 L Mean Corpuscular Hemoglobin 26.9 L Mean Corpuscular Hemoglobin Concent 31.9 L Mean Corpuscular Volume 84.2 Mean Platelet Volume 11.2 #H Monocytes # 0.1 L Monocytes % 1.2 Neutrophils # 9.0 H Neutrophils % 95.8 H Nucleated Red Blood Cells # 0.0 Nucleated Red Blood Cells % 0.0 Phenytoin (Dilantin) Level 15.5 Platelet Count 125 L Red Blood Count 4.43 #L Red Cell Distribution Width 15.2 H White Blood Count 9.4 # Lactic Acid Level 1.4 Magnesium Level 2.0 Medications Medications Current Medications Sodium Chloride (NS) 1,000 ml @ 50 mls/hr Q20H IV Last administered on 12:58; Admin Dose 50 MLS/HR; Start 10/25/16 at 04:10 Lorazepam (Ativan) 0.5 mg Q6H PRN IV ANXIETY Last administered on 10/25/16 19: 02; Admin Dose 0.5 MG; Start 10/25/16 at 04:30 Ondansetron HCl (Zofran Inj) 4 mg Q6H PRN IV NAUSEA AND/OR VOMITING; Start at 04:30 Nitroglycerin (Nitroglycerin (Sl Tab) 0.4 Mg) 1 tab Q5M PRN SL CHEST PAIN; Start 10/25/16 at 04:30 Acetaminophen (Tylenol Tab) 650 mg Q6H PRN PO PAIN LEVEL 1-3 OR FEVER; Start at 04:30 Morphine Sulfate (morphine) 2 mg Q4H PRN IV PAIN LEVEL 7-10; Start 10/25/16 at 04:30 Famotidine 20 mg 20 mg Q12 IV Last administered on 10/26/16 08:39; Admin Dose 20 MG; Start 10/25/16 at 09:00 Piperacillin Sod/ Tazobactam Sod (Zosyn 3.375gm/ 100 ml (Pmx)) 100 ml @ 200 mls /hr Q6 IVPB Last administered on 10/26/16 06:47; Admin Dose 200 MLS/HR; Start 10/25/16 at 12:00 Miscellaneous Information (*Rx Drug Level Order Reminder*) 1 ONCE ONCE XX ; Start 10/26/16 at 11:00; Stop 10/26/16 at 11:01 Dexamethasone 4 mg 4 mg Q6 IV Last administered on 10/26/16 06:47; Admin Dose 4 MG; Start 10/25/16 at 20:00 Vancomycin HCl 250 ml @ 125 mls/hr Q8H IVPB Last administered on 10/26/16 04: 35; Admin Dose 125 MLS/HR; Start 10/26/16 at 04:00 Levetiracetam/ Dextrose (Keppra Iv/D5W) 115 ml @ 440 mls/hr Q12 IVPB Last administered on 10/26/16 08:39; Admin Dose 440 MLS/HR; Start 10/25/16 at 21:00 Phenytoin (Dilantin) 100 mg Q8 IV Last administered on 10/26/16 06:59; Admin Dose 100 MG; Start 10/26/16 at 07:00 Procedures Procedures [place] [address] Radiology Main Line: [phone] DIAGNOSTIC IMAGING REPORT Patient: NAZ SHAH : 1965 Age: 50 Sex: M MR #: [id number] DOS: 10/25/16 1208 Ordering MD: CHRISTOPHER CALIXTO Location: [facility] [place] [facility] PROCEDURE: MRI Brain without contrast. CLINICAL INDICATION: Seizure and patient with history of lung cancer and possible metastasis. TECHNIQUE: An MRI of the brain was performed on a high resolution hi- definition 3.0 Nel MRI scanner utilizing the following sequences: Sagittal and axial T1 FLAIR weighted, axial T2 weighted, coronal oblique T2 FLAIR through the temporal lobes, axial diffusion weighted with ADC mapping, coronal GRE, and axial T2 FLAIR. COMPARISON: CT brain 10/25/2016 FINDINGS: The scalp and calvarium are normal. The visualized bilateral orbits are normal. The bilateral paranasal sinuses are remarkable for left greater than right maxillary sinus retention cysts. The remainder the paranasal sinuses, mastoid air cells and middle ear cavities are clear. No extra-axial fluid collections are present. The ventricles and sulci are age appropriate. Mild diffuse volume loss is present. On the FLAIR and T2- weighted sequences, numerous foci of intermediate to hyperintensity are noted in the left posterior paramidline parietal lobe, right frontal lobe, right posterior frontal white matter, bilateral basal ganglia, left thalami, left greater than right cerebral peduncle, bilateral godwin, left superior vermis, and multiple foci of hyperintensity and masses in the left cerebellar hemisphere and mass suggested in the left internal auditory canal. These lesions are concerning for metastatic disease and recommend Brain MRI with contrast. The largest of these is at least 4 cm in the left superior vermis and approximately 2.0 cm in the left cerebellar hemisphere. Brain MRI with contrast. No evidence for acute hemorrhage, hydrocephalus or herniation is present. The dedicated images of the bilateral temporal lobes demonstrate symmetric bilateral fornices and hippocampal formations. No evidence for restricted diffusion is noted on diffusion weighted sequences to suggest acute infarcts. No evidence for hypointensity on GRE sequences are noted to suggest hemorrhage. Normal flow voids are visible in the proximal intracranial arteries and dural sinuses, indicating patency. IMPRESSION: 1. Multiple FLAIR and T2 intermediate to hyperintense lesions and masses concerning for diffuse metastatic disease as described above. Recommend Brain MRI with contrast. 2. No evidence for acute hemorrhage, hydrocephalus or herniation. 3. Mild diffuse volume loss 4. Left greater than right maxillary sinus mucous retention cyst. A call report was made to Patient's Nurse, Fuad Cortes, at 10/25/2016 7:23:28 PM following the completion of the examination by the undersigned. RPTAT: HDC .Jordyn Watson MD, Date Time Electronically viewed and signed by .Jordyn Watson MD, on 10/25/2016 19: 37 .C/ CC: CHRISTOPHER CALIXTO VERA M MD Oct 26, 2016 11:03
--- NOTE | 2016-10-26 15:23 | PN ---
Date/Time of Note Date/Time of Note DATE: 10/26/16 TIME: 15:09 Assessment/Plan VTE Prophylaxis VTE Prophylaxis Intervention: SCD's Lines/Catheters IV Catheter Type (from Nrs): PICC Line Central line still needed: Yes Assessment/Plan Assessment/Plan 50 yo unfortunate male with a past medical history of metastatic lung CA, seizure d/o, who presents with overriding seizures. 1. Seizures - 2/2 #2 * Patient missed a few doses of anti seizure meds d/t travel 2. Metastatic Lung Ca stage 4 with brain and diffuse bony mets- 3. Sepsis + lactic aciodsis 2/2 LLL PNA - zosyn/vanc r/o aspiration 4. Acute Encephalopathy: 2/2 seizures (post ictal) versus disease progression 5. Remote hx of tobacco use PLAN: * Continue anti seizure meds (Keppra at max dose + dilantin) / appreciate neurology input / Continue seizure precautions / PRN ativan * Continue IV Decadron * Appreciate Oncology review for metastatic CA / Patient will need brain radiation and then possibly further chemo / Planned to continue when he returns to his own oncology * Continue IV abx for PNA * Swallow Eval /Speech and PT Eval * Supportive care PROPHYLAXIS: SCDs / Pepcid Prognosis : is unfortunately poor in [facility] Subjective 24 Hr Interval Summary Free Text/Dictation Patient seen and examined. alert, oriented to self and but not place Confused++ Exam/Review of Systems Vital Signs Vitals Vital Signs Date Time Temp Pulse Resp B/P Pulse Ox O2 Delivery O2 Flow Rate FiO2 10/26/16 07:36 98.7 86 19 123/80 95 10/25/16 16:59 Room Air 10/25/16 04:30 15.0 Intake and Output 10/25/16 10/25/16 10/26/16 15:00 23:00 07:00 Intake Total 815 ml Balance 815 ml Exam Constitutional: alert, oriented (x2 only), No distress Eyes: PERRL, icteric (mild) ENMT: No mucosa pink and moist (dry) Respiratory: clear to auscultation, diminished breath sounds Cardiovascular: nl pulses, regular rate and rhythm, No murmurs/extra sounds Gastrointestinal: bowel sounds, non-tender, soft Extremities: No edema Neurological: confused, No focal weakness, No nl mental status Skin: No rash or lesions Results Result Diagram: 10/26/16 0455 10/26/16 0452 Results 24 hrs Laboratory Tests Test 10/26/16 04:52 10/26/16 04:55 10/26/16 07:50 10/26/16 11:08 Anion Gap 12 # Blood Urea Nitrogen 10 Calcium Level 7.6 L Carbon Dioxide Level 24 Chloride Level 111 H Creatinine 0.57 L Glucose Level 122 Potassium Level 3.5 Sodium Level 143 Basophils # 0.0 Basophils % 0.1 Eosinophils # 0.0 Eosinophils % 0.0 Hematocrit 37.3 #L Hemoglobin 11.9 #L Lymphocytes # 0.3 L Lymphocytes % 2.7 L Mean Corpuscular Hemoglobin 26.9 L Mean Corpuscular Hemoglobin Concent 31.9 L Mean Corpuscular Volume 84.2 Mean Platelet Volume 11.2 #H Monocytes # 0.1 L Monocytes % 1.2 Neutrophils # 9.0 H Neutrophils % 95.8 H Nucleated Red Blood Cells # 0.0 Nucleated Red Blood Cells % 0.0 Phenytoin (Dilantin) Level 15.5 Platelet Count 125 L Red Blood Count 4.43 #L Red Cell Distribution Width 15.2 H White Blood Count 9.4 # Lactic Acid Level 1.4 Magnesium Level 2.0 Vancomycin Level Trough 8.1 L Medications Medications Current Medications Sodium Chloride (NS) 1,000 ml @ 50 mls/hr Q20H IV Last administered on 12:58; Admin Dose 50 MLS/HR; Start 10/25/16 at 04:10 Lorazepam (Ativan) 0.5 mg Q6H PRN IV ANXIETY Last administered on 10/25/16 19: 02; Admin Dose 0.5 MG; Start 10/25/16 at 04:30 Ondansetron HCl (Zofran Inj) 4 mg Q6H PRN IV NAUSEA AND/OR VOMITING; Start at 04:30 Nitroglycerin (Nitroglycerin (Sl Tab) 0.4 Mg) 1 tab Q5M PRN SL CHEST PAIN; Start 10/25/16 at 04:30 Acetaminophen (Tylenol Tab) 650 mg Q6H PRN PO PAIN LEVEL 1-3 OR FEVER; Start at 04:30 Morphine Sulfate (morphine) 2 mg Q4H PRN IV PAIN LEVEL 7-10; Start 10/25/16 at 04:30 Famotidine 20 mg 20 mg Q12 IV Last administered on 10/26/16 08:39; Admin Dose 20 MG; Start 10/25/16 at 09:00 Piperacillin Sod/ Tazobactam Sod (Zosyn 3.375gm/ 100 ml (Pmx)) 100 ml @ 200 mls /hr Q6 IVPB Last administered on 10/26/16 12:21; Admin Dose 200 MLS/HR; Start 10/25/16 at 12:00 Dexamethasone 4 mg 4 mg Q6 IV Last administered on 10/26/16 12:20; Admin Dose 4 MG; Start 10/25/16 at 20:00 Levetiracetam/ Dextrose (Keppra Iv/D5W) 115 ml @ 440 mls/hr Q12 IVPB Last administered on 10/26/16 08:39; Admin Dose 440 MLS/HR; Start 10/25/16 at 21:00 Phenytoin 100 mg 100 mg Q8 IV Last administered on 10/26/16 06:59; Admin Dose 100 MG; Start 10/26/16 at 07:00 Vancomycin HCl/ Sodium Chloride (Vancocin/NS) 250 ml @ 83.333 mls/ hr Q8H IVPB ; Start 10/26/16 at 20:00 Procedures Procedures PROCEDURE: MRI Brain without contrast. CLINICAL INDICATION: Seizure and patient with history of lung cancer and possible metastasis. TECHNIQUE: An MRI of the brain was performed on a high resolution hi- definition 3.0 Nel MRI scanner utilizing the following sequences: Sagittal and axial T1 FLAIR weighted, axial T2 weighted, coronal oblique T2 FLAIR through the temporal lobes, axial diffusion weighted with ADC mapping, coronal GRE, and axial T2 FLAIR. COMPARISON: CT brain 10/25/2016 FINDINGS: The scalp and calvarium are normal. The visualized bilateral orbits are normal. The bilateral paranasal sinuses are remarkable for left greater than right maxillary sinus retention cysts. The remainder the paranasal sinuses, mastoid air cells and middle ear cavities are clear. No extra-axial fluid collections are present. The ventricles and sulci are age appropriate. Mild diffuse volume loss is present. On the FLAIR and T2- weighted sequences, numerous foci of intermediate to hyperintensity are noted in the left posterior paramidline parietal lobe, right frontal lobe, right posterior frontal white matter, bilateral basal ganglia, left thalami, left greater than right cerebral peduncle, bilateral godwin, left superior vermis, and multiple foci of hyperintensity and masses in the left cerebellar hemisphere and mass suggested in the left internal auditory canal. These lesions are concerning for metastatic disease and recommend Brain MRI with contrast. The largest of these is at least 4 cm in the left superior vermis and approximately 2.0 cm in the left cerebellar hemisphere. Brain MRI with contrast. No evidence for acute hemorrhage, hydrocephalus or herniation is present. The dedicated images of the bilateral temporal lobes demonstrate symmetric bilateral fornices and hippocampal formations. No evidence for restricted diffusion is noted on diffusion weighted sequences to suggest acute infarcts. No evidence for hypointensity on GRE sequences are noted to suggest hemorrhage. Normal flow voids are visible in the proximal intracranial arteries and dural sinuses, indicating patency. IMPRESSION: 1. Multiple FLAIR and T2 intermediate to hyperintense lesions and masses concerning for diffuse metastatic disease as described above. Recommend Brain MRI with contrast. 2. No evidence for acute hemorrhage, hydrocephalus or herniation. 3. Mild diffuse volume loss 4. Left greater than right maxillary sinus mucous retention cyst. A call report was made to Patient's Nurse, Fuad Cortes, at 10/25/2016 7:23:28 PM following the completion of the examination by the undersigned. RPTAT: HDC .Jordyn Watson MD, Date Time Electronically viewed and signed by .Jordyn Watson MD, on 10/25/2016 19: 37 .C/ CC: CHRISTOPHER CALIXTO BOLATITO M. Oct 26, 2016 15:22
[2016-10-26 19:43] VITALS: BP 132/81; RESP 16
[2016-10-26] MEDS: VANCOMYCIN 1.5 GM in SOD CHLORIDE 0.9% 250 ML IVPB SCH (20:03)
[2016-10-26] MEDS: SOD CHLORIDE 0.9% 1,000 ML IV SCH (20:10)
[2016-10-26] MEDS: LORAZEPAM 2 MG INJ IV PRN (22:40)
[2016-10-27] MEDS ORDERED: LORAZEPAM 2 MG INJ IV ONE (00:30)
[2016-10-27] MEDS: SOD CHLORIDE 0.9% 1,000 ML IV SCH (03:16)
[2016-10-27] MEDS: VANCOMYCIN 1.5 GM in SOD CHLORIDE 0.9% 250 ML IVPB SCH ×2 (05:03→13:42)
[2016-10-27] MEDS: LORAZEPAM 2 MG INJ IV PRN ×2 (05:05→07:55)
[2016-10-27] MEDS: PHENYTOIN 100 MG INJ IV SCH ×2 (06:00→08:24)
[2016-10-27] MEDS: DEXAMETHASONE 4 MG/ML 1 ML INJ IV SCH ×3 (06:00→08:23)
[2016-10-27 07:31] VITALS: BP 136/84; RESP 20
[2016-10-27] MEDS: FAMOTIDINE 20 MG INJ IV SCH ×2 (09:41→20:51)
[2016-10-27] MEDS: LEVETIRACETAM IV 1,500 MG in DEXTROSE 5% 100 ML IVPB SCH (09:41)
[2016-10-27] MEDS: PIPER-TAZO 3.375 GM IV (PMX) 100 ML IVPB SCH ×3 (09:45→17:45)
--- NOTE | 2016-10-27 09:45 | PN ---
Date/Time of Note Date/Time of Note DATE: 10/27/16 TIME: 09:40 Assessment/Plan VTE Prophylaxis VTE Prophylaxis Intervention: SCD's Lines/Catheters IV C[facility]ter Type (from [facility]): PICC Line Central line still needed: Yes Urinary Cath still in place: No Assessment/Plan Assessment/Plan 50 yo unfortunate male with a past medical history of metastatic lung CA, seizure d/o, who presents with overriding seizures. 1. Seizures - 2/2 #2: resolved * Patient missed a few doses of anti seizure meds d/t travel 2. Metastatic Lung Ca stage 4 with brain and diffuse bony mets- 3. Sepsis + lactic aciodsis 2/2 LLL PNA - zosyn/vanc r/o aspiration: improved 4. Acute Encephalopathy: persistent, likely 2/2 brain mets versus seizures 5. Remote hx of tobacco use PLAN: * Continue anti seizure meds (Keppra at max dose + dilantin) / appreciate neurology input / Continue seizure precautions / PRN ativan * Continue IV Decadron * Appreciate Oncology review for metastatic CA / Patient will need brain radiation and then possibly further chemo / Planned to continue when he returns to his own oncology * Continue IV abx for PNA * Supportive care PROPHYLAXIS: SCDs / Pepcid Prognosis : is unfortunately poor in care home Time >30mins Subjective 24 Hr Interval Summary Free Text/Dictation still with mild confusion and abnormal speech passed swallow vivien Had a meeting with and oncology at bedside Exam/Review of Systems Vital Signs Vitals Vital Signs Date Time Temp Pulse Resp B/P Pulse Ox O2 Delivery O2 Flow Rate FiO2 10/27/16 07:31 98.0 78 20 136/84 98 10/25/16 16:59 Room Air 10/25/16 04:30 15.0 Intake and Output 10/26/16 10/26/16 10/27/16 15:00 23:00 07:00 Intake Total 880 ml 650 ml Output Total 600 ml Balance 280 ml 650 ml Exam Constitutional: alert, oriented (x2) Psych: nl mood/affect, No anxiety Head: atraumatic, normocephalic Eyes: PERRL, No icteric ENMT: mucosa pink and moist Respiratory: clear to auscultation Cardiovascular: nl pulses, regular rate and rhythm Gastrointestinal: bowel sounds, non-tender, soft Extremities: No edema Neurological: No focal weakness, No nl mental status, No nl speech Results Result Diagram: 10/26/16 0455 10/26/16 0452 Results 24 hrs Laboratory Tests Test 10/26/16 11:08 Vancomycin Level Trough 8.1 L Medications Medications Current Medications Sodium Chloride (NS) 1,000 ml @ 50 mls/hr Q20H IV Last administered on 03:16; Admin Dose 50 MLS/HR; Start 10/25/16 at 04:10 Ondansetron HCl (Zofran Inj) 4 mg Q6H PRN IV NAUSEA AND/OR VOMITING; Start at 04:30 Nitroglycerin (Nitroglycerin (Sl Tab) 0.4 Mg) 1 tab Q5M PRN SL CHEST PAIN; Start 10/25/16 at 04:30 Acetaminophen (Tylenol Tab) 650 mg Q6H PRN PO PAIN LEVEL 1-3 OR FEVER; Start at 04:30 Morphine Sulfate (morphine) 2 mg Q4H PRN IV PAIN LEVEL 7-10; Start 10/25/16 at 04:30 Famotidine 20 mg 20 mg Q12 IV Last administered on 10/26/16 20:03; Admin Dose 20 MG; Start 10/25/16 at 09:00 Piperacillin Sod/ Tazobactam Sod (Zosyn 3.375gm/ 100 ml (Pmx)) 100 ml @ 200 mls /hr Q6 IVPB Last administered on 10/26/16 23:56; Admin Dose 200 MLS/HR; Start 10/25/16 at 12:00 Dexamethasone 4 mg 4 mg Q6 IV Last administered on 10/27/16 08:23; Admin Dose 4 MG; Start 10/25/16 at 20:00 Levetiracetam/ Dextrose (Keppra Iv/D5W) 115 ml @ 440 mls/hr Q12 IVPB Last administered on 10/26/16 22:08; Admin Dose 440 MLS/HR; Start 10/25/16 at 21:00 Phenytoin 100 mg 100 mg Q8 IV Last administered on 10/27/16 08:24; Admin Dose 100 MG; Start 10/26/16 at 07:00 Vancomycin HCl/ Sodium Chloride (Vancocin/NS) 250 ml @ 83.333 mls/ hr Q8H IVPB Last administered on 10/27/16 05:03; Admin Dose 83.333 MLS/HR; Start at 20:00 Lorazepam (Ativan) 1 mg Q6H PRN IV ANXIETY Last administered on 10/27/16 07:55 ; Admin Dose 1 MG; Start 10/27/16 at 04:30 CHRISTOPHER CALIXTO Oct 27, 2016 09:45
--- NOTE | 2016-10-27 12:04 | CONS ---
Date/Time of Note Date/Time of Note DATE: 10/27/16 TIME: 12:02 Consult Date/Type/Reason Admit Date/Time Oct 25, 2016 at 04:29 Initial Consult Date 10/25/16 Type of Consultation: neurology Ordering Provider: CHRISTOPHER CALIXTO Subjective No seizures, per , improving mental status, at times word finding difficulties Objective Vital Signs Date Time Temp Pulse Resp B/P Pulse Ox O2 Delivery O2 Flow Rate FiO2 10/27/16 07:31 98.0 78 20 136/84 98 10/25/16 16:59 Room Air 10/25/16 04:30 15.0 Intake and Output 10/26/16 10/26/16 10/27/16 15:00 23:00 07:00 Intake Total 880 ml 650 ml Output Total 600 ml Balance 280 ml 650 ml Results/Medications Result Diagram: 10/26/16 0455 10/26/16 0452 Medications Current Medications Sodium Chloride (NS) 1,000 ml @ 50 mls/hr Q20H IV Last administered on 03:16; Admin Dose 50 MLS/HR; Start 10/25/16 at 04:10 Ondansetron HCl (Zofran Inj) 4 mg Q6H PRN IV NAUSEA AND/OR VOMITING; Start at 04:30 Nitroglycerin (Nitroglycerin (Sl Tab) 0.4 Mg) 1 tab Q5M PRN SL CHEST PAIN; Start 10/25/16 at 04:30 Acetaminophen (Tylenol Tab) 650 mg Q6H PRN PO PAIN LEVEL 1-3 OR FEVER; Start at 04:30 Morphine Sulfate (morphine) 2 mg Q4H PRN IV PAIN LEVEL 7-10; Start 10/25/16 at 04:30 Famotidine 20 mg 20 mg Q12 IV Last administered on 10/27/16 09:41; Admin Dose 20 MG; Start 10/25/16 at 09:00 Piperacillin Sod/ Tazobactam Sod (Zosyn 3.375gm/ 100 ml (Pmx)) 100 ml @ 200 mls /hr Q6 IVPB Last administered on 10/26/16 23:56; Admin Dose 200 MLS/HR; Start 10/25/16 at 12:00 Dexamethasone 4 mg 4 mg Q6 IV Last administered on 10/27/16 08:23; Admin Dose 4 MG; Start 10/25/16 at 20:00 Levetiracetam/ Dextrose (Keppra Iv/D5W) 115 ml @ 440 mls/hr Q12 IVPB Last administered on 10/27/16 09:41; Admin Dose 440 MLS/HR; Start 10/25/16 at 21:00 Phenytoin 100 mg 100 mg Q8 IV Last administered on 10/27/16 08:24; Admin Dose 100 MG; Start 10/26/16 at 07:00 Vancomycin HCl/ Sodium Chloride (Vancocin/NS) 250 ml @ 83.333 mls/ hr Q8H IVPB Last administered on 10/27/16 05:03; Admin Dose 83.333 MLS/HR; Start at 20:00 Lorazepam (Ativan) 1 mg Q6H PRN IV ANXIETY Last administered on 10/27/16 07:55 ; Admin Dose 1 MG; Start 10/27/16 at 04:30 Miscellaneous Information (*Rx Drug Level Order Reminder*) VANCOMYCIN TROUGH AT 1900 ONCE ONCE XX ; Start 10/27/16 at 19:00; Stop 10/27/16 at 19:01 Assessment/Plan Chief Complaint/Hosp Course PHYSICAL EXAMINATION: GENERAL: Not in acute distress, lying in bed. HEENT: Normocephalic, atraumatic head. NECK: No carotid bruits, no thyromegaly, no meningeal signs. LUNGS: Scattered rhonchi. CARDIAC: Normal cardiac rhythm and sounds. ABDOMEN: Soft. EXTREMITIES: No cyanosis, clubbing or edema. NEUROLOGIC: He is lawake, Ox2 follows commands, fluent speech. Normal response to visual threats bilaterally. Pupils reactive from 3 to 2 mm bilaterally. Extraocular movements intact looks bilaterally. Symmetrical face. Corneal reflexes present bilaterally as well as gag. The patient able to move all extremities at least 3+/5, seemed to be symmetrical. He feels pain. Deep tendon reflexes 2+ throughout. Equivocal response to plantar stimulation. IMPRESSION: Metastatic disease to the brain, history of seizures, status post recurrence of seizures. Continue Keppra and dilantin, I'll change to PO, decadron, dose 4 mg daily, used to take 2 mg daily [employer] [employer] . Problems: TOSHA FOX MD Oct 27, 2016 12:04
--- NOTE | 2016-10-27 12:15 | CONS ---
Date/Time of Note Date/Time of Note DATE: 10/27/16 TIME: 12:14 Assessment/Plan Assessment/Plan Chief Complaint/Hosp Course 50 yo unfortunate male with a past medical history of metastatic lung cancer since 2015, with mets to the bones , recent dx brain mets and SZ 2 to brain mets, who presents with overriding seizures 2 to noncompliance with antisz meds pt is improving, NO SZ cont current treatment want to see adilene here in [place] plan start XRT in [place] after dc Seizures - 2/2 no medications - neurology f-up , EEG, IV keppra, DECADRON, seizure precautions , pads, monitor acute changes, neurovascular checks LLL PNA - zosyn/vanc - monitor acute changes, ? DC GI ppx - pepcid IV DVT ppx - scds INCOMPLETE DATA NONCOMPLUANCE WITH ANTISZ MEDS OUTPT Problems: Consultation Date/Type/Reason Admit Date/Time Oct 25, 2016 at 04:29 Initial Consult Date 10/25/16 [facility] Referring Provider: CHRISTOPHER CALIXTO 24 HR Interval Summary Free Text/Dictation ALL NOTED FAMILY CONFERENCE LONG DISCUSSION WITH D/W DR CALIXTO Exam/Review of Systems Vital Signs Vitals Vital Signs Date Time Temp Pulse Resp B/P Pulse Ox O2 Delivery O2 Flow Rate FiO2 10/27/16 07:31 98.0 78 20 136/84 98 10/25/16 16:59 Room Air 10/25/16 04:30 15.0 Intake and Output 10/26/16 10/26/16 10/27/16 15:00 23:00 07:00 Intake Total 880 ml 650 ml Output Total 600 ml Balance 280 ml 650 ml Exam Gen Bruce: A,A, NAD HEENT: NC/AT, PERRLA, MM dry NECK: supple, no thyromegaly THORAX: symmetrical, no obvious deformities CV: S1S2, RRR, no M/G/R Lungs: left lower rhonchi in comparison to the right lung, no wheezing Abd: soft, NT/ND, +BS, no rebound, no guarding, neg HSM EXT: no edema, no ecchymosis, no clubbing, FROM Psych: A,A, FOLLOW COMMANDS Skin:N Results Result Diagram: 10/26/16 0455 10/26/16 045 Medications Medications Current Medications Sodium Chloride (NS) 1,000 ml @ 50 mls/hr Q20H IV Last administered on 03:16; Admin Dose 50 MLS/HR; Start 10/25/16 at 04:10 Ondansetron HCl (Zofran Inj) 4 mg Q6H PRN IV NAUSEA AND/OR VOMITING; Start at 04:30 Nitroglycerin (Nitroglycerin (Sl Tab) 0.4 Mg) 1 tab Q5M PRN SL CHEST PAIN; Start 10/25/16 at 04:30 Acetaminophen (Tylenol Tab) 650 mg Q6H PRN PO PAIN LEVEL 1-3 OR FEVER; Start at 04:30 Morphine Sulfate (morphine) 2 mg Q4H PRN IV PAIN LEVEL 7-10; Start 10/25/16 at 04:30 Famotidine 20 mg 20 mg Q12 IV Last administered on 10/27/16 09:41; Admin Dose 20 MG; Start 10/25/16 at 09:00 Piperacillin Sod/ Tazobactam Sod 100 ml @ 200 mls/hr Q6 IVPB Last administered on 10/26/16 23:56; Admin Dose 200 MLS/HR; Start 10/25/16 at 12:00 Vancomycin HCl/ Sodium Chloride (Vancocin/NS) 250 ml @ 83.333 mls/ hr Q8H IVPB Last administered on 10/27/16 05:03; Admin Dose 83.333 MLS/HR; Start at 20:00 Lorazepam (Ativan) 1 mg Q6H PRN IV ANXIETY Last administered on 10/27/16 07:55 ; Admin Dose 1 MG; Start 10/27/16 at 04:30 Miscellaneous Information (*Rx Drug Level Order Reminder*) VANCOMYCIN TROUGH AT 1900 ONCE ONCE XX ; Start 10/27/16 at 19:00; Stop 10/27/16 at 19:01 Dexamethasone (Decadron) 4 mg DAILY PO ; Start 10/28/16 at 09:00; Status UNV Phenytoin (Dilantin) 300 mg HS PO ; Start 10/27/16 at 21:00; Status UNV Levetiracetam (Keppra) 1,500 mg BID PO ; Start 10/27/16 at 21:00; Status UNV EDUIN CARSON MD Oct 27, 2016 12:15
[2016-10-27 19:31] VITALS: BP 147/88; RESP 20
[2016-10-27] MEDS: LEVETIRACETAM 750 MG TAB PO SCH ×2 (20:51→21:00)
[2016-10-27] MEDS ORDERED: PHENYTOIN 100 MG CAP PO SCH (21:00)
[2016-10-27] MEDS: LEVETIRACETAM (100 MG/ML) 5ML CUP PO SCH (21:41)
[2016-10-27] MEDS: VANCOMYCIN 1.25 GM in SOD CHLORIDE 0.9% 250 ML IVPB SCH (22:43)
[2016-10-28] MEDS: PIPER-TAZO 3.375 GM IV (PMX) 100 ML IVPB SCH ×5 (00:54→18:14)
[2016-10-28] MEDS: VANCOMYCIN 1.25 GM in SOD CHLORIDE 0.9% 250 ML IVPB SCH ×3 (05:22→22:41)
[2016-10-28 05:51] LABS: ADD SCAN DIFF NO
[2016-10-28 05:56] LABS: BASOPHILS % 0.1 % (0.0-2.0); EOSINOPHILS # 0.1 10^3/ul (0.0-0.5); EOSINOPHILS % 0.8 % (0.0-7.0); HEMATOCRIT 39.5 % (42.0-52.0); HEMOGLOBIN 12.8 g/dl (14.0-18.0); LYMPHOCYTES # 1.4 10^3/ul (0.8-2.9); LYMPHOCYTES % 17.8 % (15.0-51.0); MEAN CORPUSCULAR HEMOGLOBIN 27.2 pg (29.0-33.0); MEAN CORPUSCULAR HGB CONC 32.4 g/dl (32.0-37.0); MEAN CORPUSCULAR VOLUME 83.9 fl (82.0-101.0); MEAN PLATELET VOLUME 10.9 fl (7.4-10.4); MONOCYTE # 0.7 10^3/ul (0.3-0.9); MONOCYTES % 8.8 % (0.0-11.0); NEUTROPHIL # 5.6 10^3/ul (1.6-7.5); NEUTROPHILS % 72.2 % (39.0-77.0); PLATELET COUNT 142 10^3/UL (140-415); RED BLOOD COUNT 4.71 10^6/ul (4.70-6.10); RED CELL DISTRIBUTION WIDTH 15.2 % (11.5-14.5); WHITE BLOOD COUNT 7.7 10^3/ul (4.8-10.8)
[2016-10-28 06:08] LABS: ALBUMIN 3.3 g/dl (3.3-4.9)
[2016-10-28 06:09] LABS: POTASSIUM 3.2 mmol/L (3.5-5.1)
[2016-10-28 06:11] LABS: CREATININE 0.69 mg/dl (0.61-1.24)
[2016-10-28 06:12] LABS: CALCIUM 8.7 mg/dl (8.4-10.2)
[2016-10-28 07:49] VITALS: BP 131/86; RESP 19
--- NOTE | 2016-10-28 09:05 | PN ---
Date/Time of Note Date/Time of Note DATE: 10/28/16 TIME: 09:01 Assessment/Plan VTE Prophylaxis VTE Prophylaxis Intervention: SCD's Lines/Catheters IV Catheter Type (from [facility]): PICC Line Central line still needed: Yes Urinary Cath still in place: No Assessment/Plan Assessment/Plan 50 yo unfortunate male with a past medical history of metastatic lung CA, seizure d/o, who presents with overriding seizures. 1. Seizures - 2/2 #2 * Patient missed a few doses of anti seizure meds d/t travel * No further seizures 2. Metastatic Lung Ca stage 4 with brain and diffuse bony mets- 3. Sepsis + lactic acidosis 2/2 LLL PNA - Zosyn/Vanc r/o aspiration: improved 4. Acute Encephalopathy with expressive aphasia: improved / likely 2/2 disease progression and less likely seizures * this is likely patient's new baseline 5. Remote hx of tobacco use 6. Influenza A and B positive 7. Hypokalemia PLAN: * Continue anti seizure meds (Keppra at max dose + dilantin) / appreciate neurology input / Continue seizure precautions / PRN ativan * Repeat EEG has been ordered to ensure no further underlying seizures * Influenza results are unreliable because samples were lost previously and was just found, will begin tamiflu, but repeat test and d/c if repeat is negative. * Appreciate Oncology review for metastatic CA / Patient will need brain radiation first and then possibly further chemo * Rad oncologist to speak with patient's family on Saturday * Continue IV abx for PNA * Continue PT * Supportive care PROPHYLAXIS: SCDs / Pepcid Prognosis : is unfortunately poor in [facility] Subjective 24 Hr Interval Summary Free Text/Dictation Patient seen and examined. Still with mild confusion and expressive aphasia Exam/Review of Systems Vital Signs Vitals Vital Signs Date Time Temp Pulse Resp B/P Pulse Ox O2 Delivery O2 Flow Rate FiO2 10/28/16 07:49 98.1 61 19 131/86 97 10/25/16 16:59 Room Air 10/25/16 04:30 15.0 Intake and Output 10/27/16 10/27/16 10/28/16 15:00 23:00 07:00 Intake Total 215 ml 1070 ml 450 ml Output Total 250 ml 1300 ml Balance 215 ml 820 ml -850 ml Exam Constitutional: alert, oriented (x2 only), No distress Eyes: PERRL, icteric (mild) ENMT: No mucosa pink and moist (dry) Respiratory: clear to auscultation, diminished breath sounds Cardiovascular: nl pulses, regular rate and rhythm, No murmurs/extra sounds Gastrointestinal: bowel sounds, non-tender, soft Extremities: No edema Neurological: confused, No focal weakness Skin: No rash or lesions Results Result Diagram: 10/28/16 0509 10/28/16 0509 Results 24 hrs Laboratory Tests Test 10/27/16 19:05 10/28/16 05:09 Vancomycin Level Trough 23.2 *H Albumin 3.3 Anion Gap 13 Basophils # 0.0 Basophils % 0.1 Blood Urea Nitrogen 10 Calcium Level 8.7 Carbon Dioxide Level 28 Chloride Level 105 Creatinine 0.69 Eosinophils # 0.1 Eosinophils % 0.8 Glucose Level 82 Hematocrit 39.5 L Hemoglobin 12.8 L Lymphocytes # 1.4 Lymphocytes % 17.8 Magnesium Level 2.0 Mean Corpuscular Hemoglobin 27.2 L Mean Corpuscular Hemoglobin Concent 32.4 Mean Corpuscular Volume 83.9 Mean Platelet Volume 10.9 H Monocytes # 0.7 Monocytes % 8.8 Neutrophils # 5.6 Neutrophils % 72.2 Nucleated Red Blood Cells # 0.0 Nucleated Red Blood Cells % 0.0 Phosphorus Level 3.0 Platelet Count 142 Potassium Level 3.2 L Red Blood Count 4.71 Red Cell Distribution Width 15.2 H Sodium Level 143 White Blood Count 7.7 Medications Medications Current Medications Sodium Chloride (NS) 1,000 ml @ 50 mls/hr Q20H IV Last administered on t 03:16; Admin Dose 50 MLS/HR; Start 10/25/16 at 04:10 Ondansetron HCl (Zofran Inj) 4 mg Q6H PRN IV NAUSEA AND/OR VOMITING; Start at 04:30 Nitroglycerin (Nitroglycerin (Sl Tab) 0.4 Mg) 1 tab Q5M PRN SL CHEST PAIN; Start 10/25/16 at 04:30 Acetaminophen (Tylenol Tab) 650 mg Q6H PRN PO PAIN LEVEL 1-3 OR FEVER; Start at 04:30 Morphine Sulfate (morphine) 2 mg Q4H PRN IV PAIN LEVEL 7-10; Start 10/25/16 at 04:30 Famotidine 20 mg 20 mg Q12 IV Last administered on 10/27/16 20:51; Admin Dose 20 MG; Start 10/25/16 at 09:00 Piperacillin Sod/ Tazobactam Sod (Zosyn 3.375gm/ 100 ml (Pmx)) 100 ml @ 200 mls /hr Q6 IVPB Last administered on 10/28/16 00:54; Admin Dose 200 MLS/HR; Start 10/25/16 at 12:00 Lorazepam (Ativan) 1 mg Q6H PRN IV ANXIETY Last administered on 10/27/16 07:55 ; Admin Dose 1 MG; Start 10/27/16 at 04:30 Dexamethasone 4 mg 4 mg DAILY PO ; Start 10/28/16 at 09:00 Vancomycin HCl/ Sodium Chloride (Vancocin/NS) 250 ml @ 83.333 mls/ hr Q8H IVPB Last administered on 10/28/16 05:22; Admin Dose 83.333 MLS/HR; Start at 22:00 Levetiracetam (Keppra Liquid) 1,500 mg BID PO Last administered on 10/27/16 21 :41; Admin Dose 1,500 MG; Start 10/27/16 at 21:30 Phenytoin (Dilantin Susp Cup) 300 mg HS PO ; Start 10/28/16 at 21:00 CHRISTOPHER CALIXTO Oct 28, 2016 09:05
[2016-10-28] MEDS: LEVETIRACETAM (100 MG/ML) 5ML CUP PO SCH ×2 (09:13→20:51)
[2016-10-28] MEDS: FAMOTIDINE 20 MG INJ IV SCH ×2 (09:14→20:49)
[2016-10-28] MEDS: DEXAMETHASONE 4 MG TAB PO SCH (09:15)
[2016-10-28] MEDS: OSELTAMIVIR 75 MG CAP PO SCH ×2 (11:30→20:52)
[2016-10-28] MEDS: SOD CHLORIDE 0.9% 1,000 ML IV SCH ×2 (12:10→13:15)
[2016-10-28] MEDS ORDERED: POTASSIUM CHLORIDE 30 MEQ in SOD CHLORIDE 0.9% 150 ML IVPB ONE (12:30)
--- NOTE | 2016-10-28 16:25 | CONS ---
Date/Time of Note Date/Time of Note DATE: 10/28/16 TIME: 16:22 Consult Date/Type/Reason Admit Date/Time Oct 25, 2016 at 04:29 Initial Consult Date 10/25/16 Type of Consultation: neurol Ordering Provider: CHRISTOPHER CALIXTO Subjective per pt is getting better, practically at baseline with mental status. Objective Vital Signs Date Time Temp Pulse Resp B/P Pulse Ox O2 Delivery O2 Flow Rate FiO2 10/28/16 07:49 98.1 61 19 131/86 97 10/25/16 16:59 Room Air 10/25/16 04:30 15.0 Intake and Output 10/27/16 10/27/16 10/28/16 15:00 23:00 07:00 Intake Total 215 ml 1070 ml 450 ml Output Total 250 ml 1300 ml Balance 215 ml 820 ml -850 ml Results/Medications Result Diagram: 10/28/16 0509 10/28/16 0509 Results 24 hrs Laboratory Tests Test 10/27/16 19:05 10/28/16 05:09 Vancomycin Level Trough 23.2 *H Albumin 3.3 Anion Gap 13 Basophils # 0.0 Basophils % 0.1 Blood Urea Nitrogen 10 Calcium Level 8.7 Carbon Dioxide Level 28 Chloride Level 105 Creatinine 0.69 Eosinophils # 0.1 Eosinophils % 0.8 Glucose Level 82 Hematocrit 39.5 L Hemoglobin 12.8 L Lymphocytes # 1.4 Lymphocytes % 17.8 Magnesium Level 2.0 Mean Corpuscular Hemoglobin 27.2 L Mean Corpuscular Hemoglobin Concent 32.4 Mean Corpuscular Volume 83.9 Mean Platelet Volume 10.9 H Monocytes # 0.7 Monocytes % 8.8 Neutrophils # 5.6 Neutrophils % 72.2 Nucleated Red Blood Cells # 0.0 Nucleated Red Blood Cells % 0.0 Phosphorus Level 3.0 Platelet Count 142 Potassium Level 3.2 L Red Blood Count 4.71 Red Cell Distribution Width 15.2 H Sodium Level 143 White Blood Count 7.7 Medications Current Medications Sodium Chloride (NS) 1,000 ml @ 50 mls/hr Q20H IV Last administered on t 13:15; Admin Dose 50 MLS/HR; Start 10/25/16 at 04:10 Ondansetron HCl (Zofran Inj) 4 mg Q6H PRN IV NAUSEA AND/OR VOMITING; Start at 04:30 Nitroglycerin (Nitroglycerin (Sl Tab) 0.4 Mg) 1 tab Q5M PRN SL CHEST PAIN; Start 10/25/16 at 04:30 Acetaminophen (Tylenol Tab) 650 mg Q6H PRN PO PAIN LEVEL 1-3 OR FEVER; Start at 04:30 Morphine Sulfate (morphine) 2 mg Q4H PRN IV PAIN LEVEL 7-10; Start 10/25/16 at 04:30 Famotidine 20 mg 20 mg Q12 IV Last administered on 10/28/16 09:14; Admin Dose 20 MG; Start 10/25/16 at 09:00 Piperacillin Sod/ Tazobactam Sod (Zosyn 3.375gm/ 100 ml (Pmx)) 100 ml @ 200 mls /hr Q6 IVPB Last administered on 10/28/16 14:00; Admin Dose 200 MLS/HR; Start 10/25/16 at 12:00 Lorazepam (Ativan) 1 mg Q6H PRN IV ANXIETY Last administered on 10/27/16 07:55 ; Admin Dose 1 MG; Start 10/27/16 at 04:30 Dexamethasone 4 mg 4 mg DAILY PO Last administered on 10/28/16 09:15; Admin Dose 4 MG; Start 10/28/16 at 09:00 Vancomycin HCl/ Sodium Chloride (Vancocin/NS) 250 ml @ 83.333 mls/ hr Q8H IVPB Last administered on 10/28/16 14:46; Admin Dose 83.333 MLS/HR; Start at 22:00 Levetiracetam (Keppra Liquid) 1,500 mg BID PO Last administered on 10/28/16 09 :13; Admin Dose 1,500 MG; Start 10/27/16 at 21:30 Phenytoin (Dilantin Susp Cup) 300 mg HS PO ; Start 10/28/16 at 21:00 Miscellaneous Information (*Rx Drug Level Order Reminder*) VANCOMYCIN TROUGH AT 2100 ONCE ONCE XX ; Start 10/28/16 at 21:00; Stop 10/28/16 at 21:01 Oseltamivir Phosphate (Tamiflu) 75 mg BID PO ; Start 10/28/16 at 11:30 Assessment/Plan Chief Complaint/Hosp Course PHYSICAL EXAMINATION: GENERAL: Not in acute distress, lying in bed. HEENT: Normocephalic, atraumatic head. NECK: No carotid bruits, no thyromegaly, no meningeal signs. LUNGS: Scattered rhonchi. CARDIAC: Normal cardiac rhythm and sounds. ABDOMEN: Soft. EXTREMITIES: No cyanosis, clubbing or edema. NEUROLOGIC: He is lawake, Ox2 follows commands, fluent speech. Normal response to visual threats bilaterally. Pupils reactive from 3 to 2 mm bilaterally. Extraocular movements intact looks bilaterally. Symmetrical face. Corneal reflexes present bilaterally as well as gag. The patient able to move all extremities at least 3+/5, seemed to be symmetrical. He feels pain. Deep tendon reflexes 2+ throughout. Equivocal response to plantar stimulation. IMPRESSION: Metastatic disease to the brain, history of seizures, status post recurrence of seizures. Continue Keppra and dilantin PO, decadron 4 mg daily. EEG (2-nd) no seizures, no epileptiform discharges. Per practically at baseline mentally. OK to d/c . Problems: TOSHA FOX MD Oct 28, 2016 16:25
--- NOTE | 2016-10-28 16:26 | SP ---
DATE OF PROCEDURE: 10/27/2016 INDICATION: A 50-year-old gentleman with metastatic brain disease status post seizures. The patie nt is on Keppra and Dilantin. DESCRIPTION OF PROCEDURE: The routine EEG was recorded digitally. Mtfgn-sa-[id number] and odndm-eg-zsr montages were recorded and reviewed. All impedances were measured and recorded. Cap electrodes wer e placed in accordance with International 10-20 system of electrode placement. FINDINGS: Symmetrically distributed background activity of low amplitude ranging in frequency betwe en 8 to 10 cycles per second was seen. No definite response to photic stimulation. Intermittent mo vement, muscle and eye movement artifacts were seen. No definite epileptiform transients were seen. No signs of ongoing electrographic seizures or lateralized slowing. IMPRESSION: Essentially normal study. Epileptiform activity which was seen previously, not seen an y more. Dictated By: TOSHA LINARES/BRYCE Conf#: [id number] DID#: [id number]
[2016-10-28 19:27] VITALS: BP 147/90; RESP 20
--- NOTE | 2016-10-28 19:59 | CONS ---
Date/Time of Note Date/Time of Note DATE: 10/28/16 TIME: 19:55 Assessment/Plan Assessment/Plan Chief Complaint/Hosp Course 50 yo unfortunate male with a past medical history of metastatic lung cancer since 2014, with mets to the bones , recent dx brain mets and SZ 2 to brain mets, who presents with overriding seizures 2 to noncompliance with antisz meds pt is improving, NO SZ cont current treatment want to see mana here in [place], PT WILL BE SEEN ON SATURDAY plan start XRT in [place] after dc Seizures - 10/04 no medications - neurology f-up , EEG- NO SZs, cont keppra, DECADRON, seizure precautions, pads, monitor acute changes, neurovascular checks LLL PNA - zosyn/vanc - monitor acute changes, ? DC GI ppx - pepcid IV DVT ppx - scds INCOMPLETE DATA NONCOMPLUANCE WITH ANTISZ MEDS OUTPT Problems: Consultation Date/Type/Reason Admit Date/Time Oct 25, 2016 at 04:29 Initial Consult Date 10/25/16 Type of Consultation: HEMEON Reason for Consultation LUNG CANCER Referring Provider: CHRISTOPHER CALIXTO 24 HR Interval Summary Free Text/Dictation per pt is getting better, practically at baseline with mental status. Exam/Review of Systems Vital Signs Vitals Vital Signs Date Time Temp Pulse Resp B/P Pulse Ox O2 Delivery O2 Flow Rate FiO2 10/28/16 19:27 98.9 78 20 147/90 98 10/25/16 16:59 Room Air 10/25/16 04:30 15.0 Intake and Output 10/27/16 10/27/16 10/28/16 15:00 23:00 07:00 Intake Total 215 ml 1070 ml 450 ml Output Total 250 ml 1300 ml Balance 215 ml 820 ml -850 ml Exam Gen Bruce: A,A, NAD HEENT: NC/AT, PERRLA, MM dry NECK: supple, no thyromegaly THORAX: symmetrical, no obvious deformities CV: S1S2, RRR, no M/G/R Lungs: left lower rhonchi in comparison to the right lung, no wheezing Abd: soft, NT/ND, +BS, no rebound, no guarding, neg HSM EXT: no edema, no ecchymosis, no clubbing, FROM Psych: A,A, FOLLOW COMMANDS Skin:N Results Result Diagram: 10/28/16 0509 10/28/16 0509 Results 24 hrs Laboratory Tests Test 10/28/16 05:09 Albumin 3.3 Anion Gap 13 Basophils # 0.0 Basophils % 0.1 Blood Urea Nitrogen 10 Calcium Level 8.7 Carbon Dioxide Level 28 Chloride Level 105 Creatinine 0.69 Eosinophils # 0.1 Eosinophils % 0.8 Glucose Level 82 Hematocrit 39.5 L Hemoglobin 12.8 L Lymphocytes # 1.4 Lymphocytes % 17.8 Magnesium Level 2.0 Mean Corpuscular Hemoglobin 27.2 L Mean Corpuscular Hemoglobin Concent 32.4 Mean Corpuscular Volume 83.9 Mean Platelet Volume 10.9 H Monocytes # 0.7 Monocytes % 8.8 Neutrophils # 5.6 Neutrophils % 72.2 Nucleated Red Blood Cells # 0.0 Nucleated Red Blood Cells % 0.0 Phosphorus Level 3.0 Platelet Count 142 Potassium Level 3.2 L Red Blood Count 4.71 Red Cell Distribution Width 15.2 H Sodium Level 143 White Blood Count 7.7 Medications Medications Current Medications Sodium Chloride (NS) 1,000 ml @ 50 mls/hr Q20H IV Last administered on 13:15; Admin Dose 50 MLS/HR; Start 10/25/16 at 04:10 Ondansetron HCl (Zofran Inj) 4 mg Q6H PRN IV NAUSEA AND/OR VOMITING; Start at 04:30 Nitroglycerin (Nitroglycerin (Sl Tab) 0.4 Mg) 1 tab Q5M PRN SL CHEST PAIN; Start 10/25/16 at 04:30 Acetaminophen (Tylenol Tab) 650 mg Q6H PRN PO PAIN LEVEL 1-3 OR FEVER; Start at 04:30 Morphine Sulfate (morphine) 2 mg Q4H PRN IV PAIN LEVEL 7-10; Start 10/25/16 at 04:30 Famotidine 20 mg 20 mg Q12 IV Last administered on 10/28/16 09:14; Admin Dose 20 MG; Start 10/25/16 at 09:00 Piperacillin Sod/ Tazobactam Sod (Zosyn 3.375gm/ 100 ml (Pmx)) 100 ml @ 200 mls /hr Q6 IVPB Last administered on 10/28/16 18:14; Admin Dose 200 MLS/HR; Start 10/25/16 at 12:00 Lorazepam (Ativan) 1 mg Q6H PRN IV ANXIETY Last administered on 10/27/16 07:55 ; Admin Dose 1 MG; Start 10/27/16 at 04:30 Dexamethasone 4 mg 4 mg DAILY PO Last administered on 10/28/16 09:15; Admin Dose 4 MG; Start 10/28/16 at 09:00 Vancomycin HCl/ Sodium Chloride (Vancocin/NS) 250 ml @ 83.333 mls/ hr Q8H IVPB Last administered on 10/28/16 14:46; Admin Dose 83.333 MLS/HR; Start at 22:00 Levetiracetam (Keppra Liquid) 1,500 mg BID PO Last administered on 10/28/16 09 :13; Admin Dose 1,500 MG; Start 10/27/16 at 21:30 Phenytoin (Dilantin Susp Cup) 300 mg HS PO ; Start 10/28/16 at 21:00 Miscellaneous Information (*Rx Drug Level Order Reminder*) VANCOMYCIN TROUGH AT 2100 ONCE ONCE XX ; Start 10/28/16 at 21:00; Stop 10/28/16 at 21:01 Oseltamivir Phosphate (Tamiflu) 75 mg BID PO ; Start 10/28/16 at 11:30 EDUIN CARSON MD Oct 28, 2016 19:59
[2016-10-28] MEDS: PHENYTOIN (100 MG/4 ML) CUP PO SCH (20:51)
[2016-10-29] MEDS: PIPER-TAZO 3.375 GM IV (PMX) 100 ML IVPB SCH ×4 (00:45→18:02)
[2016-10-29 05:48] LABS: ADD SCAN DIFF NO
[2016-10-29 05:53] LABS: BASOPHILS % 0.3 % (0.0-2.0); EOSINOPHILS # 0.1 10^3/ul (0.0-0.5); HEMATOCRIT 40.9 % (42.0-52.0); HEMOGLOBIN 13.3 g/dl (14.0-18.0); LYMPHOCYTES # 1.1 10^3/ul (0.8-2.9); LYMPHOCYTES % 14.9 % (15.0-51.0); MEAN CORPUSCULAR HGB CONC 32.5 g/dl (32.0-37.0); MEAN CORPUSCULAR VOLUME 83.1 fl (82.0-101.0); MEAN PLATELET VOLUME 10.8 fl (7.4-10.4); MONOCYTE # 0.7 10^3/ul (0.3-0.9); MONOCYTES % 9.2 % (0.0-11.0); NEUTROPHIL # 5.2 10^3/ul (1.6-7.5); PLATELET COUNT 149 10^3/UL (140-415); RED BLOOD COUNT 4.92 10^6/ul (4.70-6.10); RED CELL DISTRIBUTION WIDTH 14.9 % (11.5-14.5); WHITE BLOOD COUNT 7.1 10^3/ul (4.8-10.8)
[2016-10-29 06:09] LABS: ALBUMIN 3.7 g/dl (3.3-4.9); POTASSIUM 3.1 mmol/L (3.5-5.1)
[2016-10-29 06:12] LABS: CREATININE 0.63 mg/dl (0.61-1.24); PHOSPHORUS 3.1 mg/dl (2.5-4.9)
[2016-10-29 06:13] LABS: CALCIUM 8.8 mg/dl (8.4-10.2)
[2016-10-29] MEDS: VANCOMYCIN 1.25 GM in SOD CHLORIDE 0.9% 250 ML IVPB SCH ×2 (06:15→14:22)
[2016-10-29] MEDS ORDERED: POTASSIUM CHLORIDE 250 ML IVPB SCH (07:00)
[2016-10-29] MEDS ORDERED: POTASSIUM CHLORIDE 250 ML IVPB ONE (07:30)
[2016-10-29 08:05] VITALS: BP 134/91; RESP 18
[2016-10-29] MEDS: LEVETIRACETAM (100 MG/ML) 5ML CUP PO SCH ×2 (08:08→19:45)
[2016-10-29] MEDS: OSELTAMIVIR 75 MG CAP PO SCH ×2 (08:08→21:00)
[2016-10-29] MEDS: FAMOTIDINE 20 MG INJ IV SCH (08:08)
[2016-10-29] MEDS: DEXAMETHASONE 4 MG TAB PO SCH (08:08)
[2016-10-29] MEDS: SOD CHLORIDE 0.9% 1,000 ML IV SCH (08:10)
--- NOTE | 2016-10-29 09:38 | PDOCDIS ---
Discharge Instructions CONDITION Patient Condition: Stable HOME CARE INSTRUCTIONS: Special Diet: mech soft ACTIVITY: Activity Restrictions: Slowly Increase Activity FOLLOW UP/APPOINTMENTS Appointments Please take your medications as prescribed, and see your doctor in the clinic in 1 week. JAYDEN RUDOLPH Oct 29, 2016 09:38
[2016-10-29] MEDS ORDERED: DOXY100T20 PO (09:41)
[2016-10-29] MEDS ORDERED: LEVE500S9 PO (09:41)
[2016-10-29] MEDS ORDERED: DEXA4TAB PO (09:41)
[2016-10-29] MEDS ORDERED: PHEN100O4 PO (09:41)
--- NOTE | 2016-10-29 10:50 | DS ---
DATE OF ADMISSION: 10/25/2016 DATE OF DISCHARGE: 10/29/2016 HOSPITAL COURSE: This is a 50-year-old male originally admitted on 10/25/2014 being discharged home 10/29/2016. Patient came in with seizures and also left lower lobe pneumonia. He was admitted and seen by a speech therapy team, physical therapy team and neurology team during this hospital stay and also hematology/oncology team. The patient was started on antibiotics for his pneumonia. Regarding his seizures, apparently he had missed a few doses of his anti-seizure medicines due to traveling issues and had imaging studies performed including a brain MRI that showed multiple flare in T2 intermediate hyperintense lesions and masses concerning for diffuse metastatic disease, but no evidence of any hemorrhages or hydrocephalus or herniations, left greater than right maxillary sinus mucus retention cyst. In any event, the patient also had EEG performed that showed abnormal study secondary to right-sided or generalized sharp wave activity, clearly epileptogenic and recommendations were aggressive seizure prophylaxis. The activity reflects periodic epileptiform discharges, also possible short electric seizures. At any event, the patient was already taking Keppra at home. This dose was increased here to 1500 mg b.i.d. He was also started on Dilantin over the course of his hospital stay, he had no further seizure episodes. His white blood cell count was elevated on admission presumably secondary to his pneumonia and the white blood cell count was stable afterwards. Initially there was an influenza test that was showing positive influenza A but a repeat test of that was negative. So the patient initially was started on Tamiflu and this was stopped since the second test was negative. Over the course of her hospital stay again he was able to ambulate with assistance and tolerate a p.o. diet. He was seen by physical therapy team and speech therapy team and after being cleared by hematology/oncology and neurology teams patient will be discharged home today in an improved condition. MEDICATIONS: He will be sent with the following medications: 1. Doxycycline 100 mg p.o. b.i.d. for 5 days, Keppra 1500 mg b.i.d. 2. Valium 25619 mg at bedtime. 3. Dexamethasone 4 mg daily. Continue to follow up Neurology team and hematology/oncology team in the clinic in the next 1 to 2 weeks. FINAL DIAGNOSES: 1. Seizure secondary to metastatic lung cancer with brain metastasis, stage IV and also secondary to missing a few doses of anti-seizure medicines now with positive EEG results, now on increased dose and frequency of seizure medications with no seizures presently. 2. Metastatic lung disease stage IV with metastasis to the brain and diffuse bony mets seen by hematology/oncology team as an outpatient. 3. Sepsis and lactic acidosis secondary to pneumonia, improved and resolved now. Continue antibiotics. 4. Acute encephalopathy with expressive aphasia improved secondary to disease progression as well. 5. Remote history of tobacco use. 6. Questionable influenza A positive test with a repeat test on this admission negative for influenza A. No fevers. Time spent discharging patient 50 minutes. Dictated By: JAYDEN HUANG/BRYCE Conf#: [id number] DID#: [id number] ANJUM
--- NOTE | 2016-10-29 15:44 | DS ---
DATE OF ADMISSION: 10/25/2016 DATE OF DISCHARGE: 10/29/2016 ADDENDUM The patient will not be on Valium as a discharge medication. Dictated By: JAYDEN BRYAN Conf#: [id number] DID#: [id number]
--- NOTE | 2016-10-29 15:49 | DS ---
DATE OF ADMISSION: 10/25/2016 DATE OF DISCHARGE: 10/29/2016 ADDENDUM After speaking with human performance consultant teams, the patient has been instructed that it is unsafe to operate machinery including automobiles or any other machinery due to seizure risk. Also per recommendations from human performance consultant teams, it is not safe for the patient to travel at this time. The patient will follow up with our radiation oncology team as an outpatient in the next few days. We will provide the patient's family and patient with the office phone number and address. Again, it was stressed to the patient's family that it would not be safe for him to operate machinery or drive or to travel at this time. The patient is visiting from [place] and currently is deciding between holistic treatment for his stage IV cancer versus further radiation therapy. In the meantime as stated above in the prior discharge summary, we will give him an office phone number and address to follow up with neurology team as well. The Dilantin dose will be 300 mg p.o. at bedtime. Please add that as a correction to the dose of Dilantin. Dictated By: JAYDEN HUANG/BRYCE Conf#: [id number] DID#: [id number] MTDD
[2016-10-29] MEDS ORDERED: NA PHOSPHATE/BIPHOS 133 ML ENEMA PR ONE (16:30)
--- NOTE | 2016-10-29 17:21 | CONS ---
Date/Time of Note Date/Time of Note DATE: 10/29/16 TIME: 16:30 Assessment/Plan Assessment/Plan Chief Complaint/Hosp Course Multiple brain metastases causing confusion, seizure and falls risk while on dexamethasone Problems: Additional Assessment/Plan I strongly recommend that this patient receive whole brain radiation therapy. I reviewed the indications, risks, benefits and side effects of brain radiation with the patient's . These side effects include but are not limited to fatigue, alopecia, dysphagia, odynophagia, otitis, headaches, nausea, vomiting and neurological deterioration. alf complications may include cataracts, hearing loss, retinopathy, short term memory loss, loss of problem solving skills, radiation necrosis, leukoencephalopathy. I advised that the patient is NOT SAFE TO TRAVEL under any circumstances, and that should he have a seizure on the plane, he could lose his airway which could lead to his demise. It is particularly concerning that he remains so confused on dexamethasone. At this time, his and family are strongly considering holistic treatment. I have advised them that worsening of neurological symptoms due to untreated brain metastases could lead to neurological , and that the patient could receive brain radiation prior to proceeding with holistic treatment. His understands the advice, but will not proceed with radiation therapy until the family is in agreement. Should they wish to proceed with radiation therapy, a follow up appointment was given to them for simulation and treatment on 2016. She understands that I do not think he is safe to travel. She is willing to self pay for radiation but feels that she could be reimbursed by [facility]. I also have her my phone number should she wish to expedite radiation therapy or have any other questions. This plan was discussed with Dr Calixto and Dr López, who are in agreement. Thank you for the opportunity to participate in his care. Daisy Quiroz MD Consultation Date/Type/Reason Admit Date/Time Oct 25, 2016 at 04:29 Date of Consultation: Oct 29, 2016 Type of Consultation: Radiation Oncology Reason for Consultation symptomatic brain metastases Referring Provider: CHRISTOPHER CALIXTO Hx of Present Illness The patient is a tourist from [place] and his medical records are not available at this time. This history was obtained from his . The patient is a 50M with a history of EGFR + lung cancer, treated with Afatinib in [place]. He developed bone mets and received radiation therapy to his left hip, during which he developed fatigue. He developed seizures about a month ago, and was found to have brain metastases. The patient understood the side effects of brain radiation to be severe fatigue and permanent memory loss; he declined and was started on anti seizure medication. His brought him by airplane to [place], as the patient's family lives here and he wanted to see a holistic physician here. His notes that, even on the plane journey, the patient was 'not all there' and 'kind of unconscious'. The patient missed one dose of his anti-seizure medication and subsequently developed generalized tonic clonic seizures. He was brought to the ER at [facility] where he was stabilized. A workup revealed multiple brain metastases. The patient was started on dexamethasone, and remains confused. HIs states that sometimes , "the wrong words come out of his mouth" but she understands what he means. He is continent of his urine and is urinating independently. He has not had a bowel movement in 4 days. A reliable review of systems cannot be obtained because the patient is confused. Psychological: confusion, No anxiety Past Medical History lung cancer history of targeted chemotherapy with Afatinib Past Surgical History Past Surgical Hx: no surgical history Social History Alcohol Use: none Smoking Status: Former smoker Drug Use: none Exam/Review of Systems Vital Signs Vitals Vital Signs Date Time Temp Pulse Resp B/P Pulse Ox O2 Delivery O2 Flow Rate FiO2 10/29/16 08:05 97.7 74 18 134/91 99 10/25/16 16:59 Room Air Intake and Output 10/28/16 10/28/16 10/29/16 15:00 23:00 07:00 Intake Total 500 ml 1575 ml 800 ml Balance 500 ml 1575 ml 800 ml Exam Constitutional: alert, frail, No oriented Psych: confusion, No nl mood/affect Head: atraumatic, normocephalic Eyes: EOMI, nl conjunctiva, nl sclera, No icteric (no scleral incterus) Neck: non-tender, supple Respiratory: diminished breath sounds Gastrointestinal: non-tender, soft Musculoskeletal: nl extremities to inspection, No nl gait and stance (patient cannot stand or walk without assistance) Extremities: normal pulses Neurological: DTR's symmetric (hyperreflexic), confused, other (neurological examination cannot be conducted due patient confusion and lack of cooperation. ) , No nl mental status, No nl speech (aaphasic) Skin: nl turgor Results Result Diagram: 10/29/16 0454 10/29/16 0454 Results 24 hrs Laboratory Tests Test 10/28/16 20:50 10/29/16 04:54 Vancomycin Level Trough 13.9 Albumin 3.7 Anion Gap 15 Basophils # 0.0 Basophils % 0.3 Blood Urea Nitrogen 8 Calcium Level 8.8 Carbon Dioxide Level 27 Chloride Level 101 Creatinine 0.63 Eosinophils # 0.1 Eosinophils % 1.0 Glucose Level 107 Hematocrit 40.9 L Hemoglobin 13.3 L Lymphocytes # 1.1 Lymphocytes % 14.9 L Mean Corpuscular Hemoglobin 27.0 L Mean Corpuscular Hemoglobin Concent 32.5 Mean Corpuscular Volume 83.1 Mean Platelet Volume 10.8 H Monocytes # 0.7 Monocytes % 9.2 Neutrophils # 5.2 Neutrophils % 74.0 Nucleated Red Blood Cells # 0.0 Nucleated Red Blood Cells % 0.0 Phosphorus Level 3.1 Platelet Count 149 Potassium Level 3.1 L Red Blood Count 4.92 Red Cell Distribution Width 14.9 H Sodium Level 140 White Blood Count 7.1 Medications Medications Current Medications Sodium Chloride (NS) 1,000 ml @ 50 mls/hr Q20H IV Last administered on 13:15; Admin Dose 50 MLS/HR; Start 10/25/16 at 04:10 Ondansetron HCl (Zofran Inj) 4 mg Q6H PRN IV NAUSEA AND/OR VOMITING; Start at 04:30 Nitroglycerin (Nitroglycerin (Sl Tab) 0.4 Mg) 1 tab Q5M PRN SL CHEST PAIN; Start 10/25/16 at 04:30 Acetaminophen (Tylenol Tab) 650 mg Q6H PRN PO PAIN LEVEL 1-3 OR FEVER; Start at 04:30 Morphine Sulfate 2 mg 2 mg Q4H PRN IV PAIN LEVEL 7-10; Start 10/25/16 at 04:30 Piperacillin Sod/ Tazobactam Sod (Zosyn 3.375gm/ 100 ml (Pmx)) 100 ml @ 200 mls /hr Q6 IVPB Last administered on 10/29/16 11:51; Admin Dose 200 MLS/HR; Start 10/25/16 at 12:00 Lorazepam (Ativan) 1 mg Q6H PRN IV ANXIETY Last administered on 10/27/16 07:55 ; Admin Dose 1 MG; Start 10/27/16 at 04:30 Dexamethasone 4 mg 4 mg DAILY PO Last administered on 10/29/16 08:08; Admin Dose 4 MG; Start 10/28/16 at 09:00 Vancomycin HCl/ Sodium Chloride (Vancocin/NS) 250 ml @ 83.333 mls/ hr Q8H IVPB Last administered on 10/29/16 14:22; Admin Dose 83.333 MLS/HR; Start at 22:00 Levetiracetam (Keppra Liquid) 1,500 mg BID PO Last administered on 10/29/16 08 :08; Admin Dose 1,500 MG; Start 10/27/16 at 21:30 Phenytoin (Dilantin Susp Cup) 300 mg HS PO Last administered on 10/28/16 20:51 ; Admin Dose 300 MG; Start 10/28/16 at 21:00 Oseltamivir Phosphate (Tamiflu) 75 mg BID PO ; Start 10/28/16 at 11:30 Famotidine (Pepcid) 20 mg Q12 PO ; Start 10/29/16 at 21:00 Sodium Biphosphate/ Sodium Phosphate (Fleet Enema) 133 ml ONCE ONCE AR ; Start 10/29/16 at 16:30; Stop 10/29/16 at 16:31; Status DAISY ADAMS MD Oct 29, 2016 16:41
[2016-10-29 19:25] VITALS: BP 130/94; RESP 18
[2016-10-29] MEDS: PHENYTOIN (100 MG/4 ML) CUP PO SCH (19:45)
[2016-10-29] MEDS: LORAZEPAM 2 MG INJ IV PRN (19:57)
[2016-10-29] MEDS ORDERED: FAMOTIDINE 20 MG TAB PO SCH (21:00)
--- NOTE | 2016-10-29 22:03 | CONS ---
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 DC GI ppx - pepcid IV DVT ppx - scds INCOMPLETE DATA NONCOMPLUANCE WITH ANTISZ MEDS OUTPT Problems: Consultation Date/Type/Reason Admit Date/Time Oct 25, 2016 at 04:29 Initial Consult Date 10/25/16 Type of Consultation: [facility] Referring Provider: CHRISTOPHER CALIXTO 24 HR Interval Summary Free Text/Dictation ALL NOTED SEEN BY [facility] NEEDS BRAIN XRT Exam/Review of Systems Vital Signs Vitals Vital Signs Date Time Temp Pulse Resp B/P Pulse Ox O2 Delivery O2 Flow Rate FiO2 10/29/16 19:25 98.2 71 18 130/94 97 10/25/16 16:59 Room Air Intake and Output 10/28/16 10/28/16 10/29/16 15:00 23:00 07:00 Intake Total 500 ml 1575 ml 800 ml Balance 500 ml 1575 ml 800 ml Exam Gen Bruce: A,A, NAD HEENT: NC/AT, PERRLA, MM dry NECK: supple, no thyromegaly THORAX: symmetrical, no obvious deformities CV: S1S2, RRR, no M/G/R Lungs: left lower rhonchi in comparison to the right lung, no wheezing Abd: soft, NT/ND, +BS, no rebound, no guarding, neg HSM EXT: no edema, no ecchymosis, no clubbing, FROM Psych: A,A, FOLLOW COMMANDS Skin:N Results Result Diagram: 10/29/16 0454 10/29/16453 Results 24 hrs Laboratory Tests Test 10/29/16 04:54 Albumin 3.7 Anion Gap 15 Basophils # 0.0 Basophils % 0.3 Blood Urea Nitrogen 8 Calcium Level 8.8 Carbon Dioxide Level 27 Chloride Level 101 Creatinine 0.63 Eosinophils # 0.1 Eosinophils % 1.0 Glucose Level 107 Hematocrit 40.9 L Hemoglobin 13.3 L Lymphocytes # 1.1 Lymphocytes % 14.9 L Mean Corpuscular Hemoglobin 27.0 L Mean Corpuscular Hemoglobin Concent 32.5 Mean Corpuscular Volume 83.1 Mean Platelet Volume 10.8 H Monocytes # 0.7 Monocytes % 9.2 Neutrophils # 5.2 Neutrophils % 74.0 Nucleated Red Blood Cells # 0.0 Nucleated Red Blood Cells % 0.0 Phosphorus Level 3.1 Platelet Count 149 Potassium Level 3.1 L Red Blood Count 4.92 Red Cell Distribution Width 14.9 H Sodium Level 140 White Blood Count 7.1 Medications Medications Current Medications Sodium Chloride (NS) 1,000 ml @ 50 mls/hr Q20H IV Last administered on 13:15; Admin Dose 50 MLS/HR; Start 10/25/16 at 04:10 Ondansetron HCl (Zofran Inj) 4 mg Q6H PRN IV NAUSEA AND/OR VOMITING; Start at 04:30 Nitroglycerin (Nitroglycerin (Sl Tab) 0.4 Mg) 1 tab Q5M PRN SL CHEST PAIN; Start 10/25/16 at 04:30 Acetaminophen (Tylenol Tab) 650 mg Q6H PRN PO PAIN LEVEL 1-3 OR FEVER; Start at 04:30 Morphine Sulfate 2 mg 2 mg Q4H PRN IV PAIN LEVEL 7-10; Start 10/25/16 at 04:30 Piperacillin Sod/ Tazobactam Sod (Zosyn 3.375gm/ 100 ml (Pmx)) 100 ml @ 200 mls /hr Q6 IVPB Last administered on 10/29/16 18:02; Admin Dose 200 MLS/HR; Start 10/25/16 at 12:00 Lorazepam (Ativan) 1 mg Q6H PRN IV ANXIETY Last administered on 10/29/16 19:57 ; Admin Dose 1 MG; Start 10/27/16 at 04:30 Dexamethasone 4 mg 4 mg DAILY PO Last administered on 10/29/16 08:08; Admin Dose 4 MG; Start 10/28/16 at 09:00 Vancomycin HCl/ Sodium Chloride (Vancocin/NS) 250 ml @ 83.333 mls/ hr Q8H IVPB Last administered on 10/29/16 14:22; Admin Dose 83.333 MLS/HR; Start at 22:00 Levetiracetam (Keppra Liquid) 1,500 mg BID PO Last administered on 10/29/16 19 :45; Admin Dose 1,500 MG; Start 10/27/16 at 21:30 Phenytoin (Dilantin Susp Cup) 300 mg HS PO Last administered on 10/29/16 19:45 ; Admin Dose 300 MG; Start 10/28/16 at 21:00 Oseltamivir Phosphate (Tamiflu) 75 mg BID PO ; Start 10/28/16 at 11:30 Famotidine (Pepcid) 20 mg Q12 PO ; Start 10/29/16 at 21:00 EDUIN CARSON MD Oct 29, 2016 22:02
== END 2016-10-29 22:20 | disposition home or self-care (01) | DRG 871 ==
LOC: E/R 01:38 → UNDOADMIN 04:29 → MS2 04:29 → UNDODISIN 10-29 22:20
PROVIDERS: ADMIT Student in an Organized Health Care Education/Training Program; ATTEND Student in an Organized Health Care Education/Training Program
DX: A41.9 Sepsis, unspecified organism (principal); J18.9 Pneumonia, unspecified organism; G93.49 Other encephalopathy; C79.31 Secondary malignant neoplasm of brain; C34.90 Malignant neoplasm of unspecified part of unspecified bronchus or lung; C79.51 Secondary malignant neoplasm of bone; R47.01 Aphasia; G40.909 Epilepsy, unspecified, not intractable, without status epilepticus; Z91.14 Patient's other noncompliance with medication regimen; Z87.891 Personal history of nicotine dependence
CPT/HCPCS: 36415; 36569; 70450; 70551; 71010; 76937; 80048; 80053; 80069; 80185; 80202; 81003; 82962; 83605; 83735; 85025; 85610; 85730; 87040; 87086; 87400; 90686; 92610; 93005; 95819; 96374; 96375; 96376; 97162; C1769; J1100; J1165; J1953; J2060; J2270; J2543; J3370; J3475; J3480; J7030; J7050